=== PATIENT | female | born 1985 | race Caucasian/White ===

== ENCOUNTER → 2017-05-25 | Outpatient (CLI) | payer OTHER ==
[~2017-05-25] MED LIST: ACET-1311 PO; ADVIN25/60 INH; ALBU1AER9 INH; AMT50 PO; ERGO500037 PO; HYDR-5688 PO; METF1000 PO; NXM/40 PO; PLMINSR5 INH; SERT-234 PO
[2017-05-25 13:11] LABS: BASO % 0.2 %; BASO ABS # 0.02 K/uL (0-0.2); EOS % 1.5 %; HEMATOCRIT 38.5 % (37-47); IG% 0.1 %; LYMPH % 29.4 %; LYMPH ABS # 2.41 K/uL (1.2-3.4); MEAN CELL VOLUME 71.8 fL (80-100); MEAN CORPUSCULAR HEMOGLOBIN 22.2 pg (25-34); MEAN CORPUSCULAR HGB CONC 30.9 g/dl (32-36); MEAN PLATELET VOLUME 11.6 fL (7.4-10.4); MONO % 7.4 %; NEUT % 61.4 %; PLATELET COUNT 347 K/uL (130-400); RED BLOOD COUNT 5.36 M/uL (4.2-5.4); WHITE BLOOD COUNT 8.21 K/uL (4.8-10.8)
[2017-05-25 13:46] LABS: ALT/SGPT 30 U/L (12-78); BLOOD UREA NITROGEN 17 mg/dl (7-18); BUN/CREATININE RATIO 22.1 (10-20); CALCIUM 9.2 mg/dl (8.5-10.1); CARBON DIOXIDE 28 mmol/L (21-32); CHLORIDE 103 mmol/L (98-107); CHOLESTEROL 143 mg/dl (0-200); COMPLETE YES; CREATININE 0.79 mg/dl (0.60-1.20); GLUCOSE 93 mg/dl (70-99); HYPERSEGMENTED POLYS 1+; MAGNESIUM 2.2 mg/dl (1.8-2.4); MICROCYTOSIS PRESENT; POTASSIUM 3.5 mmol/L (3.5-5.1); SCHISTOCYTES 1+; SODIUM 139 mmol/L (136-145); TRIGLYCERIDES 90 mg/dl (0-150); VERY LOW DENSITY LIPOPROT CALC 18 mg/dl
[2017-05-25 13:48] LABS: ESTIMATED AVERAGE GLUCOSE 114 mg/dl; HA1C FLAG Normal (Normal)
[2017-05-25 13:55] LABS: ALKALINE PHOSPHATASE 74 U/L (45-117); AST/SGOT 19 U/L (15-37); CHOLESTEROL/HDL RATIO 2.9; HDL CHOLESTEROL 50 mg/dl; LDL CHOLESTEROL CALCULATED 75 mg/dl
--- NOTE | 2017-06-02 12:55 | CODING QUERY MEDICAL NECESSITY ---
SUPPORTING DIAGNOSIS NEEDED A supporting diagnosis is required for the test/procedure performed on this patient in order for us to be reimbursed by the patient's insurance. Please provide a supporting diagnosis for the following test/procedure listed below next to the test name along with your signature. *If there is no additional diagnosis for this patient that would support the following test/procedure please document that below next to the test/procedure. Test(s)/Procedure(s) that require a supporting diagnosis: * HEMOGLOBIN A1C DIAGNOSIS: Provider Signature: Date: Thank you Michelle Hayden [employer] Information Management Once completed, please kindly fax back to [phone] For questions please call [phone]
== END | disposition home or self-care (01) ==
LOC: C.LAB 12:12
PROVIDERS: ATTEND Nurse Practitioner Adult Health
DX: I10 Essential (primary) hypertension (principal); E66.01 Morbid (severe) obesity due to excess calories; K21.9 Gastro-esophageal reflux disease without esophagitis; E53.8 Deficiency of other specified B group vitamins; E55.9 Vitamin D deficiency, unspecified

== ENCOUNTER 2017-06-21 01:02 | Emergency (ER) | payer OTHER ==
[~2017-06-21] VITALS: Ht 170.2 cm; Wt 159.8 kg
[2017-06-21 01:13] VITALS: TEMP 36.8; Ht 170.2 cm; Wt 159.8 kg
--- NOTE | 2017-06-21 01:50 | EMERGENCY ROOM VISIT NOTE ---
History First contact with patient: 01:16 Chief Complaint: SINUS CONGESTION/PRESSURE Stated Complaint: SINUS CONGESTION,TROUBLE BREATHING,FEVER Nursing Triage Summary: pt ambulated to triage pt reports " I think I have pneumonia" started 1 wk ago with back pain and cough using a neb machine at home with not much relief History of Present Illness The patient is a 32 year old female who presents to the Emergency Room with complaints of respiratory symptoms. The patient states that she has had cold symptoms for 1 week. She initially had sneezing and nasal discharge. She states that the symptoms "moved into her chest" a few days ago. She called her primary care provider and they called her in a prescription for albuterol for her nebulizer. She has been using [id number] medications and inhalers with some relief. She states she has had diarrhea, chills, shortness of breath and a dry cough. She does have a history of asthma and states that she has had pneumonia in the past. She reports fevers, although temperature here was normal despite not taking any antipyretics. Review of Systems A complete 10 point review of systems was reviewed with the patient with pertinent positives and negatives as per history of present illness. All else were negative. Past Medical/Surgical History Medical Problems: (1) Kidney stones (2) Lumbar disc lesion (3) Pneumonia (4) Pneumonitis (5) Polycystic ovaries (6) Shortness of breath Family History No pertinent family history Social History Smoking Status: Never Smoker Alcohol Use: none Drug Use: none Marital Status: single Housing Status: lives with family Occupation Status: disabled Current/Historical Medications Scheduled Amitriptyline Hcl (Elavil), 50 MG PO HS Azithromycin (Zithromax), 250 MG PO DAILY Cyanocobalamin (Vitamin B12), Unknown Dose PO DAILY Ergocalciferol (Vitamin D 18011 Unit), 50,000 UNIT PO WK Esomeprazole Magnesium (Nexium), 40 MG PO QAM Ferrous Sulfate (Kp Ferrous Sulfate), 1 TAB PO DAILY Hydrochlorothiazide (Hctz), 25 MG PO DAILY Metformin Hcl (Glucophage), 1,000 MG PO HS Multivitamin (Multivitamin), 1 TAB PO DAILY Prednisone (Prednisone), 50 MG PO DAILY Sertraline (Zoloft), 150 MG PO HS Scheduled PRN Acetaminophen (Tylenol), 650 MG PO QID PRN for Pain Albuterol Sulfate (Proair Hfa), 1-2 PUFFS INH Q4-6HRS PRN for SOB/Wheezing Budesonide (Pulmicort Respules 0.5MG/2ML), 2 ML INH QID PRN for Shortness of Breath Fluticasone Prop/Salmeterol (Advair Diskus 250/50 60 Dose), 1 PUFFS INH BID PRN for SOB/Wheezing Physical Exam Vital Signs Date Time Temp Pulse Resp B/P (MAP) Pulse Ox O2 Delivery O2 Flow Rate FiO2 06/21/17 02:29 91 20 145/102 98 Room Air 06/21/17 01:13 36.8 97 18 169/114 100 Room Air Physical Exam VITALS: Vitals are noted on the nurse's note and reviewed by myself. Vital signs stable. GENERAL: This is a 32-year-old female, in no acute distress, nondiaphoretic, well-developed well-nourished. SKIN: The skin was without rashes. EARS: External auditory canals clear, tympanic membranes pearly crawford without erythema or effusion bilaterally. EYES: Pupils equal round and reactive to light and accommodation. NOSE: Patent, turbinates without inflammation or discharge. MOUTH: Mucous membranes moist. Tonsils are not enlarged. Pharynx without erythema or exudate. NECK: Supple without nuchal rigidity. No lymphadenopathy. HEART: Regular rate and rhythm without murmurs gallops or rubs. LUNGS: Clear to auscultation bilaterally without wheezes, rales or rhonchi. No retractions or accessory muscle use. NEURO: Patient was alert and oriented to person place and time. Medical Decision & Procedures ER Provider Diagnostic Interpretation: CHEST X-RAY: No obvious lobar consolidation. Possible developing right lower lobe infiltrate. Medications Administered Medications (Trade) Dose Ordered Sig/Hailey Route Start Time Stop Time Status Last Admin Dose Admin Azithromycin (Zithromax Tab) 500 mg NOW STAT PO 06/21/17 02:28 06/21/17 02:30 DC 06/21/17 02:33 500 MG Prednisone (PredniSONE TAB) 60 mg NOW STAT PO 06/21/17 02:28 06/21/17 02:30 DC 06/21/17 02:32 60 MG Medical Decision Differential diagnosis includes pneumonia, upper respiratory infection, asthma exacerbation, among others. The patient was evaluated as above. Vital signs are within normal limits. Oxygen saturation is near 100% on room air. X-ray was obtained and shows possible developing right lower lobe infiltrate. Patient will be placed on Zithromax and prednisone for her symptoms. She was advised to follow-up with her primary care provider for a recheck this week. She will return for any worsening or new/concerning symptoms. She verbalized understanding and was discharged home in good condition. Medication Reconcilliation Current Medication List: was personally reviewed by me Blood Pressure Screening Patient's blood pressure: Normal blood pressure Impression Primary Impression: Upper respiratory infection Departure Information Dispostion Home / Self-Care Condition GOOD Prescriptions Prednisone (Prednisone) 50 Mg Tab 50 MG PO DAILY for 4 Days, #4 TAB Prov: Katelyn Maloney .DIETER 06/21/17 Azithromycin (Zithromax) 250 Mg Tab 250 MG PO DAILY for 4 Days, #4 TAB Prov: Katelyn Maloney PA-C 06/21/17 Referrals Michele Crespo III, CRNP (PCP) Patient Instructions My [facility] Additional Instructions You were prescribed Zithromax to be taken as prescribed. This is an antibiotic. All antibiotics have the potential to cause diarrhea. Stop this medication and contact a medical provider if you were to develop any significant adverse side effects including: wheezing, shortness of breath, passing out, vomiting, or a diffuse rash. Always take antibiotics as directed and COMPLETE the ENTIRE course regardless of the improvement of your symptoms. Prednisone as prescribed. For pain control, you can use the following [id number]-[id number] medicines (if >12 yo): - Regular strength (325mg/tab) Tylenol (acetaminophen) 2 tabs every 4-6 hours as needed. Do not exceed 12 tablets in a 24 hour period. Avoid taking more than 4 grams (4000 mg) of Tylenol per day. This includes any other sources of acetaminophen you may take on a regular basis. - Regular strength (200 mg/tab) Advil (ibuprofen) 1-2 tabs every 4-6 hours as needed. Do not exceed a dose of 3200 mg per day. Continue your nebulizers and inhalers at home. Follow-up with your primary care provider this week. Return to the emergency department with any worsening or new/concerning symptoms.
[2017-06-21] MEDS ORDERED: HYDR25TA4 PO (02:19)
[2017-06-21] MEDS ORDERED: MULT-506 PO (02:22)
[2017-06-21] MEDS ORDERED: CYAN100020 PO (02:23)
[2017-06-21] MEDS ORDERED: FERR1TAB13 PO (02:25)
[2017-06-21] MEDS ORDERED: AZITHROMYCIN 250 MG TAB PO STA (02:28)
[2017-06-21 02:29] VITALS: BP 145/102; PULSE 91; O2SAT 98
[2017-06-21] MEDS ORDERED: AZIT250T PO (02:37)
[2017-06-21] MEDS ORDERED: PRED50TA PO (02:37)
--- NOTE | 2017-06-21 08:06 | DIAGNOSTIC IMAGING REPORT ---
CHEST 2 VIEWS ROUTINE HISTORY: cough, shortness of breath COMPARISON: Chest 07/01/2015. FINDINGS: The lungs are clear. Cardiac silhouette is normal in size. No pleural effusions. No pneumothorax. IMPRESSION: No acute process. Electronically signed by: Damien Mcfarlane M.D. 06/21/2017 8:05 AM Dictated Date/Time: 06/21/2017 8:04 AM
== END 2017-06-21 02:41 | disposition home or self-care (01) ==
LOC: C.EDB 01:03
DX: J06.9 Acute upper respiratory infection, unspecified (principal); J45.909 Unspecified asthma, uncomplicated; Z79.84 Long term (current) use of oral hypoglycemic drugs

== ENCOUNTER 2022-03-22 02:15 | Inpatient (IN) ==
--- NOTE | 2022-03-22 02:58 | History & Physical Report ---
Date of Service March 22, 2022 Assessment & Plan (1) with 36 completed weeks gestation: (2) Supervision of elderly primigravida: (3) Premature labor: Plan Patient now in active labor. Difficult ultrasound but appears breech and had been planning on proceeding with c/s anyway. consent reviewed and signed. Fetus overall reassuring despite difficult tracing. Will proceed urgently. History of Present Illness Chief Complaint: contractions, twins Primary Care Provider: Isa Tubbs MD Patient is a 37yowf iup di/di twin at 36 4/7 weeks who presents to labor and delivery complaining of contractions. Patient was in labor and delivery yesterday for decreased fm. rnst x 2. cx at that time was c l/l/h. Patient had been kendrick at that time. She notes contractions increased at about 7pm last night. Notes some slight spotting and continued loss of mucous plug. has been somewhat complicated. and Delivery Plans PT REQUESTS THAT FOB (VICK) BE REMOVED FROM HIPPA AND NOT ATTEND APPTS!! This has changed and he is present currently AMA *Weekly NST's @ 36wks Hx Gastric Bypass sees specialist, likely will be getting Fe injections seeing G boy's adviser BORA noted on us in the ED 08/27. *plan wkly visits for reassurance *not seen at anatomy scan covid vaccine x 2 had flu vaccine Di/Di Twin *Baby ASA daily start 12-28wks until delivery *Anatomy scan @20wks *Serial growth US/S starting @24wks *Wkly NST's @32wks, twice wkly @36wks(nml growth) *Twice wkly NST's @32wks, ICSI or abnml growth *MD visits Q2wks @24wks & Qwk @32wks *DI/DI Deliver @38wks C/S SCHEDULED FOR 04/04/[address] CASTRO AND DR[address] JENKINS ASSIST NEEDS COVID TEST ON 04/02/2022-ORDERED Allergies Allergy/AdvReac Type Severity Reaction Status Date / Time Pertussis Vaccines Allergy Severe SEE COMMENT Verified 03/18/22 11:26 erythromycin base Allergy Intermediate HIVES, Verified 03/18/22 11:26 N/V, HALLUCINATION Sulfa (Sulfonamide Allergy Intermediate HIVES, Verified 03/18/22 11:26 Antibiotics) N/V, HALLUCINATIONS sulfamethoxazole Allergy Intermediate hives, Verified 03/18/22 11:26 [From Bactrim] n/v, hallucinations trimethoprim [From Bactrim] Allergy Intermediate hives, Verified 03/18/22 11:26 n/v, hallucinations clindamycin AdvReac Intermediate yeast Verified 03/18/22 11:26 infections doxycycline AdvReac Intermediate YEAST Verified 03/18/22 11:26 INFECTION NSAIDS (Non-Steroidal AdvReac Unknown No NSAID's Verified 03/18/22 11:26 Anti-Inflamma due to hx of gastric bypass surgery Home Medications Medication Instructions Recorded Confirmed Type albuterol sulfate 90 mcg/actuation 1 puff inhalation Q4 PRN Shortness 02/13/21 03/18/22 Rx aerosol inhaler (ProAir HFA) Of Breath #25.5 grams lansoprazole 30 mg capsule,delayed 30 mg PO QAM 02/14/21 03/18/22 History release escitalopram oxalate 20 mg tablet 20 mg PO HS #90 tabs 04/10/21 03/18/22 Rx albuterol sulfate 2.5 mg/3 mL 2.5 mg (3 mL) inhalation Q4H PRN 05/31/21 03/18/22 Rx (0.083 %) solution for nebulization shortness of breath or wheezing #90 mL pediatric multivitamin no.76 1 tab PO DAILY 08/27/21 03/18/22 History (Flintstones Complete chewable tablet) cyanocobalamin (vitamin B-12) 1,000 mcg IM DIRECTED 12/27/21 03/18/22 History 1,000 mcg/mL injection solution Iron Infusion 1 ea IV DIRECTED 03/03/22 03/18/22 History cephalexin 500 mg capsule 500 mg PO BID 03/13/22 03/18/22 History terconazole 0.4 % vaginal cream 1 appful vaginal HS 7 days #45 03/14/22 03/18/22 Rx grams Patient History Medical History (Updated 03/22/22 @ 03:03 by Ladan Elizabeth MD, FACOG) Anemia to start IV iron infusions Anxiety Asthma Borderline diabetes Cervicalgia Chronic back pain Degenerative disc disease Depression Fibromyalgia GERD (gastroesophageal reflux disease) History of anesthesia reaction difficulty waking History of herpes genitalis History of lymphadenopathy History of nephrolithiasis History of urinary calculi right Hormonal contraceptive Hypertension Insomnia persistent Kidney stones Osteoarthritis Pelvic pain Post traumatic stress disorder Sleep apnea mild; does not use CPAP Spinal stenosis Vaginal candidiasis Vulvitis Surgical History H/O gastric bypass History of ankle surgery right History of lumbar laminectomy History of open reduction and internal fixation (ORIF) procedure right leg fx--hardware removed History of tooth extraction Hx of wisdom tooth extraction Family History Grandmother (Maternal) Family history of diabetes mellitus Ovarian cancer Aunt Family history of diabetes mellitus Unknown Diabetes Myocardial infarction Ovarian cancer Mother Fibromyalgia Family/Other Myocardial infarction Father , 68 Myocardial infarction Brother Hypertension Asthma Other No family history of adverse response to anesthesia Denies family history of Prostate cancer Breast cancer Colorectal cancer Social History Smoking Status: Current every day smoker Tobacco Type: Cigarettes Age Started Using Tobacco: 14; packs per day: 1; Cigarettes Per Day: 10; Second Hand Exposure: No; Hx Alcohol Use: No Hx Substance Use: No Preferred Language: Indonesian Communication Ability: Effective Visual Impairment: No Limitations Hearing Ability: Normal Beauty Specialist Required: No Beliefs That Will Affect Care: None marital status: marital status details: FOB: Vick (41) [phone] Current Living Situation: Spouse Current Living Situation Comment: lives with spouse, mother 2 dogs, 3 cats, spouse to change litter. current occupational status: employed and disabled current occupation: cafe @ [employer] Other Information That Helps Us Care for You: No Feels Safe at Home: Yes Safety Concerns: Feels Safe At This Time Childhood Exposure to Second-Hand Smoke: Yes Dental Care, Regularly: No Physical Activity Frequency: 3-4 Times per Week Seatbelt Use: never Sunscreen Use: Yes Assistive Devices: Glasses and Nebulizer Physical Exam Constitutional: WD/WN, vitals as above Gastrointestinal (Abdomen): soft, gravid, nt Psychiatric: A+Ox3, euthymic affect Genitourinary: difficult exam cx--at least 6-8cm likely , bulging bag palpated toco--q5min efm--difficult tracing, both babies are in 130s, cannot trace adequately Results & Data ([facility]) Vital Signs (Past 12 Hours) Vital Signs Temp Pulse Resp BP 03/22/22 02:34 36.8 C 18 03/22/22 02:33 75 133/76 Coding Level of Care Code None Diagnoses with 36 completed weeks gestation Z3A.36 Supervision of elderly primigravida O09.519 Premature labor O60.00
[2022-03-22] MEDS ORDERED: LACTATED RINGER'S 1,000 ML IV SCH ×2 (03:00→20:45)
[2022-03-22] MEDS ORDERED: ONDANSETRON INJ 2 MG/ML 2 ML VIAL ONE (03:09)
[2022-03-22] MEDS ORDERED: fentaNYL citrate 100 MCG/2 ML VIAL ONE (03:09)
[2022-03-22] MEDS ORDERED: PHENYLEPHRINE 100MCG/ML 5ML SYR ONE (03:09)
[2022-03-22] MEDS ORDERED: OXYTOCIN 10 UNITS/ML VIAL ONE (03:09)
[2022-03-22] MEDS ORDERED: MoRPHine SULFATE PF 1 MG/ML 10 ML AMP/VIAL ONE (03:09)
[2022-03-22] MEDS ORDERED: CITRIC ACID/SODIUM CITRATE 15 ML UDC PO ONE (03:15)
--- NOTE | 2022-03-22 03:15 | Anesthesiology Consultation ---
Date of Service March 22, 2022 Assessment & Plan (1) Encounter for pre-operative examination: Chart Review Chart Review: Acceptable Risk for Surgery and Patient NOT seen in Pre Admission Testing Consults Requested none History Height/Weight Height: 5 ft 7 in Weight: 111.13 kg Allergies Allergy/AdvReac Type Severity Reaction Status Date / Time Pertussis Vaccines Allergy Severe SEE COMMENT Verified 03/18/22 11:26 erythromycin base Allergy Intermediate HIVES, Verified 03/18/22 11:26 N/V, HALLUCINATION Sulfa (Sulfonamide Allergy Intermediate HIVES, Verified 03/18/22 11:26 Antibiotics) N/V, HALLUCINATIONS sulfamethoxazole Allergy Intermediate hives, Verified 03/18/22 11:26 [From Bactrim] n/v, hallucinations trimethoprim [From Bactrim] Allergy Intermediate hives, Verified 03/18/22 11:26 n/v, hallucinations clindamycin AdvReac Intermediate yeast Verified 03/18/22 11:26 infections doxycycline AdvReac Intermediate YEAST Verified 03/18/22 11:26 INFECTION NSAIDS (Non-Steroidal AdvReac Unknown No NSAID's Verified 03/18/22 11:26 Anti-Inflamma due to hx of gastric bypass surgery Medications Home Medications Medication Instructions Recorded Confirmed Last Taken albuterol sulfate 90 mcg/actuation 1 puff inhalation Q4 PRN Shortness 02/13/21 03/18/22 Unknown aerosol inhaler (ProAir HFA) Of Breath #25.5 grams lansoprazole 30 mg capsule,delayed 30 mg PO QAM 02/14/21 03/18/22 03/16/22 release escitalopram oxalate 20 mg tablet 20 mg PO HS #90 tabs 04/10/21 03/18/22 03/16/22 22:00 albuterol sulfate 2.5 mg/3 mL 2.5 mg (3 mL) inhalation Q4H PRN 05/31/21 03/18/22 Unknown (0.083 %) solution for nebulization shortness of breath or wheezing #90 mL pediatric multivitamin no.76 1 tab PO DAILY 08/27/21 03/18/22 03/16/22 (Flintstones Complete chewable tablet) cyanocobalamin (vitamin B-12) 1,000 mcg IM DIRECTED 12/27/21 03/18/22 03/14/22 09:00 1,000 mcg/mL injection solution Iron Infusion 1 ea IV DIRECTED 03/03/22 03/18/22 03/14/22 09:00 cephalexin 500 mg capsule 500 mg PO BID 03/13/22 03/18/22 03/17/22 13:00 terconazole 0.4 % vaginal cream 1 appful vaginal HS 7 days #45 03/14/22 03/18/22 03/16/22 22:00 grams Active Medications Generic Name Dose Route Start Last Admin Trade Name Leno PRN Reason Stop Dose Admin Lactated Ringer's 1,000 mls @ 999 mls/hr 03/22/22 03:00 03/22/22 03:00 Lr IV 03/22/22 04:00 999 mls/hr .Q1H1M BORA Administration Past Medical History Medical History Anemia to start IV iron infusions Anxiety Asthma Borderline diabetes Cervicalgia Chronic back pain Degenerative disc disease Depression Fibromyalgia GERD (gastroesophageal reflux disease) History of anesthesia reaction difficulty waking History of herpes genitalis History of lymphadenopathy History of nephrolithiasis History of urinary calculi right Hormonal contraceptive Hypertension Insomnia persistent Kidney stones Osteoarthritis Pelvic pain Post traumatic stress disorder Sleep apnea mild; does not use CPAP Spinal stenosis Vaginal candidiasis Vulvitis Exercise / Class Metabolic Activity II 4-5 Yardwork/Stairs/Walk up hill Past Family History Family History Grandmother (Maternal) Family history of diabetes mellitus Ovarian cancer Aunt Family history of diabetes mellitus Unknown Diabetes Myocardial infarction Ovarian cancer Mother Fibromyalgia Family/Other Myocardial infarction Father , 68 Myocardial infarction Brother Hypertension Asthma Other No family history of adverse response to anesthesia Denies family history of Prostate cancer Breast cancer Colorectal cancer Past Surgical History Surgical History H/O gastric bypass History of ankle surgery right History of lumbar laminectomy History of open reduction and internal fixation (ORIF) procedure right leg fx--hardware removed History of tooth extraction Hx of wisdom tooth extraction Past Anesthesia History No Hx of Anesthesia Complications and No Family Hx of Anesthesia Complications History of PONV No Hx of Motion Sickness and History of PONV Social History Smoking Status: Current every day smoker tobacco type: cigarettes Smoking cigarettes per day: 10 Hx Alcohol Use: No Hx Substance Use: No substance use type: does not use Physical Exam Vital Signs Last Vital Signs Temp 36.8 C 03/22/22 02:34 Pulse 75 03/22/22 02:33 Resp 18 03/22/22 02:34 BP 133/76 03/22/22 02:33 Testing Laboratory Results plt 03/13/22 293
[2022-03-22 03:27] LABS: Basophils # (auto) 0.03 K/uL (0-0.2); Basophils % (auto) 0.4 %; Eosinophils # (auto) 0.12 K/uL (0-0.50); Eosinophils % (auto) 1.5 %; Hematocrit (blood only) 33.6 % (34.1-44.9); Hemoglobin 10.5 g/dl (12.0-16.0); Immature Granulocytes # (auto) 0.04 K/uL (0.00-0.02); Immature Granulocytes % (auto) 0.5 %; Lymphocytes # (auto) 1.61 K/uL (1.2-3.4); Lymphocytes % (auto) 20.5 %; Mean Corpuscular Hemoglobin 25.9 pg (25.0-34.0); Mean Corpuscular Hgb Conc 31.3 g/dL (32.0-36.0); Mean Platelet Volume 11.6 fL (9.4-12.3); Monocytes % (auto) 7.6 %; Neutrophils # (auto) 5.47 K/uL (1.4-6.5); Neutrophils % (auto) 69.5 %; Nucleated RBC # (auto) 0.02 K/uL (0-0); Nucleated RBC % (auto) 0.3 %; Platelet Count 208 K/uL (130-400); RDW Standard Deviation 48.4 fL (36.4-46.3); Red Blood Count 4.05 M/uL (3.93-5.22); White Blood Count 7.87 K/ul (4.8-10.8)
[2022-03-22] MEDS ORDERED: miSOPROStoL 200 MCG TAB ONE (03:36)
[2022-03-22] MEDS ORDERED: METHYLERGONOVINE MALEATE 0.2 MG/ML AMP ONE (03:36)
[2022-03-22] MEDS ORDERED: SODIUM CHLORIDE 0.9% 250 ML IV PRN (03:58)
[2022-03-22] MEDS ORDERED: HYDROmorphone INJ 0.5 MG/0.5 ML SYR IV PRN (04:04)
[2022-03-22] MEDS ORDERED: LACTATED RINGER'S 500 ML IV PRN (04:04)
[2022-03-22] MEDS ORDERED: MoRPHine SULFATE PF 1 MG/ML 10 ML AMP/VIAL INT SPINAL ONE (04:04)
[2022-03-22] MEDS ORDERED: ONDANSETRON INJ 2 MG/ML 2 ML VIAL IV PRN ×2 (04:04→04:33)
[2022-03-22] MEDS ORDERED: MoRPHine SULFATE 2 MG/ML CARP IV PRN (04:04)
[2022-03-22] MEDS ORDERED: NALOXONE HCL 0.08 MG in SYRINGE 1.8 ML IV PRN (04:04)
[2022-03-22] MEDS ORDERED: NALOXONE HCL 0.4 MG/1 ML VIAL/CARP IV PRN (04:04)
[2022-03-22] MEDS ORDERED: ePHEDrine sulfate 50 MG/ML AMP IV PRN (04:04)
[2022-03-22] MEDS ORDERED: diphenhydrAMINE 50 MG/ML VIAL IV PRN ×2 (04:04→22:04)
[2022-03-22] MEDS ORDERED: NALBUPHINE HCL INJ 10 MG/ML AMP IV PRN (04:04)
[2022-03-22] MEDS ORDERED: NALOXONE HCL 1 MG in SODIUM CHLORIDE 0.9% 1000ML 1,000 ML IV PRN (04:04)
[2022-03-22] MEDS ORDERED: NO NARCOTICS OR SEDATIVES SCH (04:15)
[2022-03-22] MEDS ORDERED: DC INTRASPINAL MORPHINE SCH (04:15)
[2022-03-22] MEDS ORDERED: SODIUM CHLORIDE 0.9% 1000ML 1,000 ML IV SCH (04:15)
[2022-03-22] MEDS ORDERED: DIPHTHERIA/TETANUS/PERTUSSIS 0.5 ML SYR/VIAL IM ONE (04:33)
[2022-03-22] MEDS ORDERED: MAGNESIUM HYDROXIDE SUSP 30 ML UDC PO PRN (04:33)
[2022-03-22] MEDS ORDERED: HYDROCORTISONE ACETATE 25 MG SUPP PR PRN (04:33)
[2022-03-22] MEDS ORDERED: BENZOCAINE 20% AER SPR 82.5 GM CAN EXT PRN (04:33)
[2022-03-22] MEDS ORDERED: SENNA 8.6 MG TAB PO PRN (04:33)
[2022-03-22] MEDS ORDERED: KETOROLAC 30 MG/ML VIAL IV PRN ×3 (04:53→22:04)
--- NOTE | 2022-03-22 04:55 | Anesthesiology Progress Note ---
Date of Service March 22, 2022 Anesthesia Post Procedure Vital Signs Vital Signs: Temp Pulse Resp BP Pulse Ox 03/22/22 02:34 36.8 C 18 03/22/22 04:49 98 03/22/22 04:49 67 03/22/22 04:47 93 03/22/22 04:47 72 03/22/22 04:45 69 03/22/22 04:45 126/59 L 03/22/22 02:33 75 133/76 Transfer of Care Handoff Completed per policy Notes Mental Status: alert / awake / arousable and participated in evaluation Patient Amnestic to Procedure: No Nausea / Vomiting: adequately controlled Pain: adequately controlled Airway Patency, RR, SpO2: stable & adequate BP & HR: stable & adequate Hydration State: stable & adequate Neuraxial Anesthesia: was administered and sensory block is resolving Anesthetic Complications: no major complications apparent and Pt Satisfied with anesthetic care
--- NOTE | 2022-03-22 04:55 | Operative Report ---
PG Post Operative Report Pre & Post Diagnosis Operation Date: 03/22/22 03:30 Pre-Op Diagnosis: Di Di twin at 36 weeks 4 days premature labor breech baby A and breech baby B Post-Op Diagnosis: same as pre op diagnosis thin meconium baby B I identified the patient and participated in the time-out.: Yes Procedure Operation Date: 03/22/22 03:30 Actual Procedures p Primary low transverse Section in LD(Not Applicable) - Ladan Elizabeth MD, FACOG Surgeon Ladan Elizabeth MD, FACOG [employer] Floor Walker Dr. Granados Estimated Blood Loss 700 Findings Consistent with Post-Op Diagnosis viable female infant, baby A apgars 5/9, Baby A with very thin cord, minimal Brunswick's jelly, nuchal cord x 1, footling breech presentation baby B apgars 2/8, footling breech, short cord. normal uterus, tubes and ovaries noted. weights pending. Fluids 1500cc Specimens two placentas, fused Drains maciel Anesthesia Type General Complications none Disposition Accompanied Patient To Recovery: Yes Disposition: L&D Indications Patient is a 37yowf with di/di twin iup at 36 4/7 weeks who presents to labor and delivery with active carter, breech presentation Description of Procedure The patient was taken to the operating room where she was identified verbally and by bracelet. She was seated on the operating table where a spinal anesthetic was placed by anesthesia. She was then placed in the supine position with a leftward tilt. A Maciel catheter was placed sterilely. the patient was prepped and draped in a normal standard fashion. the anesthetic was tested and found to be adequate. A time-out was held, identifying correct patient, procedure, positioning and preoperative antibiotics. There were no concerns. A Pfannenstiel skin incision was made with a knife and taken down to the underlying layer of fascia with the knife and Bovie electrocautery. Bleeding was attended to with the Bovie. The fascia was incised in the midline with the knife and taken out laterally with scissors. The superior edge of the fascial incision was grasped, elevated and the underlying layer of rectus muscle was taken off bluntly and with scissors. In a similar fashion, the inferior edge of the fascial incision was grasped, elevated and the underlying layer of rectus muscle was taken off bluntly and with scissors. The muscles were bluntly in the midline. The peritoneum was entered bluntly. The incision was then stretched. The bladder blade was placed. The vesicouterine peritoneum was identified, entered with scissors and taken out laterally with scissors. The bladder flap was created digitally A hysterotomy incision was scored with a knife and the incision was stretched superiorly and inferiorly with the adjusto writer operator's fingers and then taken out laterally with bandage scissors. The amniotic sac for baby A was ruptured for thin meconium. The operators hand was placed into the incision and the feet were grasped. The feet were delivered and the body and head were delivered with gentle traction and fundal pressure. Nuchal cord x one reduced. The nose and mouth were bulb suctioned. The cord was clamped and cut and the infant was then handed off to the awaiting mechanical repair worker for drying and attention. Cord blood obtained. The amniotic sac for baby B was ruptured, clear fluid. The feet were grasped and delivered through the incision. The rest of the infant was then delivered by gentle tract ion and fundal pressure. The nose and mouth were bulb suctioned, cord clamped and cut and handed off to awaiting peds. Cord blood obtained. Cords too short to obtain a cord segment. The placentas were expressed. The uterus was exteriorized and cleared of all clot and debris with moistened laparotomy sponges. The hysterotomy incision was repaired in two layers, the first in a running locked layer, the second in an imbricating layer. Several stitches of 0 Vicryl needed for oozing of the incision. Some bleeding edges attended to with cautery. Hemostasis was noted to be good. There was a small hematoma in the area of the left uterine artery. A large figure of eight suture of 0 vicryl placed and no further increase in the size was noted. Posterior cul-de-sac was irrigated and cleared of all clot and debris. The hysterotomy incision was again inspected and found to be hemostatic. the uterus was reinteriorized. Hysterotomy incision was again inspected and two further stitches were required for hemostasis. Gudelia was placed over the incision and pressure was held for two minutes. Hemostasis noted to be good. Gutters were cleared of clot. Rectus muscles were reapproxim ated with several interrupted stitches of 0 Vicryl. The fascia was then reapproximated with 0 Vicryl starting at the edges and meeting in the midline. The subcuticular tissues were copiously irrigated and bleeding was attended to with cautery. The skin was then closed with 4-0 Vicryl in a subcuticular fashion. A IRMA drain was placed. All sponge, lap and needle counts were correct x 2. The patient was taken to the recovery room in stable condition. I attest to the content of the Intraoperative Record and any orders documented therein. Any exceptions are noted below. OB Procedure Charges [id number]
[2022-03-22] MEDS: OXYTOCIN 20 UNITS in LACTATED RINGER'S 1,000 ML IV SCH ×2 (05:03→14:14)
[2022-03-22] MEDS ORDERED: LIDOCAINE 1% LOCAL 20 ML VIAL ONE (07:13)
[2022-03-22] MEDS: PRENATAL VITAMIN 1 TAB PO SCH (09:53)
[2022-03-22] MEDS: PANTOprazole 40 MG TAB PO SCH (09:53)
[2022-03-22] MEDS: DOCUSATE SODIUM 100 MG CAP PO SCH ×2 (09:53→21:29)
[2022-03-22] MEDS: SIMETHICONE 80 MG CHEW PO SCH ×4 (09:53→21:29)
[2022-03-22] MEDS: FERROUS SULFATE 325 MG TAB PO SCH (09:53)
[2022-03-22] MEDS: ESCITALOPRAM OXALATE 20 MG TAB PO SCH (21:29)
[2022-03-22] MEDS ORDERED: diphenhydrAMINE Capsule 25 MG CAP PO PRN (22:04)
[2022-03-22] MEDS ORDERED: PROMETHAZINE HCL 25 MG in SODIUM CHLORIDE 0.9% 50 ML IV PRN (22:04)
[2022-03-22] MEDS ORDERED: MEPERIDINE HCL 50 MG/ML CARP IV PRN (22:04)
[2022-03-22] MEDS: oxyCODONE/ACETAMINOPHEN 5mg/325mg TAB PO PRN (23:10)
[2022-03-23] MEDS: oxyCODONE/ACETAMINOPHEN 5mg/325mg TAB PO PRN ×4 (04:45→20:59)
[2022-03-23 07:10] LABS: Basophils # (auto) 0.03 K/uL (0-0.2); Basophils % (auto) 0.4 %; Eosinophils # (auto) 0.22 K/uL (0-0.50); Eosinophils % (auto) 2.9 %; Hematocrit (blood only) 30.8 % (34.1-44.9); Hemoglobin 9.5 g/dl (12.0-16.0); Immature Granulocytes # (auto) 0.04 K/uL (0.00-0.02); Immature Granulocytes % (auto) 0.5 %; Lymphocytes # (auto) 1.47 K/uL (1.2-3.4); Lymphocytes % (auto) 19.6 %; Mean Corpuscular Hemoglobin 25.5 pg (25.0-34.0); Mean Corpuscular Hgb Conc 30.8 g/dL (32.0-36.0); Mean Corpuscular Volume 82.8 fL (80.0-100.0); Mean Platelet Volume 11.5 fL (9.4-12.3); Monocytes # (auto) 0.41 K/uL (0.24-0.82); Monocytes % (auto) 5.5 %; Neutrophils # (auto) 5.34 K/uL (1.4-6.5); Neutrophils % (auto) 71.1 %; Nucleated RBC # (auto) 0.02 K/uL (0-0); Nucleated RBC % (auto) 0.3 %; Platelet Count 176 K/uL (130-400); RDW Coefficient of Variation 17.1 % (11.5-14.5); RDW Standard Deviation 48.6 fL (36.4-46.3); Red Blood Count 3.72 M/uL (3.93-5.22); White Blood Count 7.51 K/ul (4.8-10.8)
--- NOTE | 2022-03-23 07:34 | Obstetrical Progress Note ---
Date of Service March 23, 2022 Assessment & Plan (1) Encounter for care and examination after delivery: encourage ambulation abdominal binder ordered which should reduce incisional discomfort while walking advance diet Subjective Ambulation: ambulating normally Voiding: no voiding problems Passing Gas:: No Diet Tolerance:: clear liquids Lochia:: Small Feeding Type:: bottle feeding moving slowly so far- feels alot of pulling from pannus when she is up and makes it difficult to move. tolerating clear liquids - no nausea or vomiting but no flatus yet Review of Systems All systems reviewed & are unremarkable except as noted in HPI & below Physical Exam Constitutional WD/WN, vitals as above Cardiovascular Extremities: no calf tenderness Gastrointestinal (Abdomen) normal bowel sounds, soft, nontender, no hepatosplenomegaly (expected tenderness from incision) Inspection/Auscultation: + abdominal surgical incision (IRMA dressing intact - no further growth of staining ) Psychiatric A+Ox3, euthymic affect Genitourinary OB Exam Abdomen: + fundal height Fundus: + firm and + relation to umbilicus (1 below) Results & Data ([facility]) Vital Signs (Past 12 Hours) Vital Signs Temp Pulse Resp BP Pulse Ox O2 Del Method 03/23/22 03:40 97.9 F 61 16 105/72 95 Room Air 03/22/22 22:45 18 93 03/22/22 23:00 98.1 F 70 16 118/79 94 Room Air 03/22/22 21:30 16 95 03/22/22 20:30 16 96 03/22/22 19:30 16 94 03/22/22 19:30 Room Air 03/22/22 19:30 98.2 F 73 16 112/71 94 Room Air
[2022-03-23] MEDS: FERROUS SULFATE 325 MG TAB PO SCH (08:03)
[2022-03-23] MEDS: SIMETHICONE 80 MG CHEW PO SCH ×4 (08:03→21:02)
[2022-03-23] MEDS: DOCUSATE SODIUM 100 MG CAP PO SCH ×2 (08:03→20:59)
[2022-03-23] MEDS: PANTOprazole 40 MG TAB PO SCH (08:03)
[2022-03-23] MEDS: PRENATAL VITAMIN 1 TAB PO SCH (08:03)
[2022-03-23] MEDS ORDERED: bisacodyL 5 MG TABEC PO SCH (20:00)
[2022-03-23] MEDS: ESCITALOPRAM OXALATE 20 MG TAB PO SCH (21:00)
[2022-03-24] MEDS: oxyCODONE/ACETAMINOPHEN 5mg/325mg TAB PO PRN ×4 (01:33→21:00)
[2022-03-24] MEDS ORDERED: bisacodyL 10 MG SUPP PR PRN (04:33)
[2022-03-24 06:30] LABS: Hematocrit (blood only) 29.6 % (34.1-44.9); Hemoglobin 9.3 g/dl (12.0-16.0)
--- NOTE | 2022-03-24 06:58 | Obstetrical Progress Note ---
Date of Service <Ileana Root MD - Last Filed: 03/24/22 07:34> March 24, 2022 Assessment & Plan <Ileana Root MD - Last Filed: 03/24/22 07:34> (1) Encounter for care and examination after delivery: encourage ambulation abdominal binder ordered which should reduce incisional discomfort while walking advance diet as tolerated, zofran PRN for nausea <Margarette Desai MD, FACOG - Last Filed: 03/24/22 09:25> (1) Encounter for care and examination after delivery: Subjective <Ileana Root MD - Last Filed: 03/24/22 07:34> Ambulation: limited ambulation Voiding: no voiding problems Passing Gas:: Yes Diet Tolerance:: nausea/vomiting (nauseous with eating, no vomiting) Lochia:: Small Feeding Type:: bottle feeding Physical Exam <Ileana Root MD - Last Filed: 03/24/22 07:34> Constitutional WD/WN, vitals as above Cardiovascular Extremities: no calf tenderness Gastrointestinal (Abdomen) normal bowel sounds, soft, nontender, no hepatosplenomegaly (expected tenderness from incision) Inspection/Auscultation: + abdominal surgical incision (IRMA dressing intact - no further growth of staining ) Psychiatric A+Ox3, euthymic affect Results & Data ([facility]) <Ileana Root MD - Last Filed: 03/24/22 07:34> Vital Signs (Past 12 Hours) Vital Signs Temp Pulse Resp BP O2 Del Method 03/23/22 23:29 36.8 C 62 16 117/80 Room Air 03/23/22 20:00 36.6 C 63 16 133/86 Room Air <Margarette Desai MD, FACOG - Last Filed: 03/24/22 09:25> Co-Signing Physician Notes Resident Physician Supervision Note: I interviewed and examined the patient. Discussed with Dr. Root and agree with findings and plan as documented in the note. Any exceptions or clarifications are listed here: [None] Documented By: Margarette Desai MD, FACOG Resident Activity Tracking <Ileana Root MD - Last Filed: 08/29/22 07:34> Resident Involvement: Resident Care Provided Care Provided: Adult [facility] Medicine
[2022-03-24] MEDS: DOCUSATE SODIUM 100 MG CAP PO SCH ×2 (08:33→21:00)
[2022-03-24] MEDS: ONDANSETRON 4 MG OD TAB PO PRN ×2 (08:33→15:32)
[2022-03-24] MEDS: FERROUS SULFATE 325 MG TAB PO SCH (08:33)
[2022-03-24] MEDS: PRENATAL VITAMIN 1 TAB PO SCH (08:33)
[2022-03-24] MEDS: PANTOprazole 40 MG TAB PO SCH (08:33)
[2022-03-24] MEDS: SIMETHICONE 80 MG CHEW PO SCH ×4 (08:33→21:00)
[2022-03-24] MEDS: ESCITALOPRAM OXALATE 20 MG TAB PO SCH (21:00)
[2022-03-25] MEDS: oxyCODONE/ACETAMINOPHEN 5mg/325mg TAB PO PRN ×2 (03:07→08:57)
--- NOTE | 2022-03-25 06:46 | Obstetrical Progress Note ---
Date of Service <Ileana Root MD - Last Filed: 03/25/22 07:42> March 25, 2022 Assessment & Plan <Ileana Root MD - Last Filed: 03/25/22 07:42> (1) Encounter for care and examination after delivery: PPD3 encourage ambulation abdominal binder ordered which should reduce incisional discomfort while walking advance diet as tolerated, zofran PRN for nausea cleared from an OB standpoint, awaiting peds - can d/c today if babies are going home or wait for tomorrow f/u 6 weeks <Chaya Deleon MD, FACOG - Last Filed: 03/25/22 07:45> (1) Encounter for care and examination after delivery: Subjective <Ileana Root MD - Last Filed: 03/25/22 07:42> Ambulation: ambulating normally Voiding: no voiding problems Passing Gas:: No (Can feel things moving around) Feeding Type:: bottle feeding Physical Exam <Ileana Root MD - Last Filed: 03/25/22 07:42> Constitutional WD/WN, vitals as above Respiratory no increased work of breathing Cardiovascular Extremities: no calf tenderness clinically well perfused Gastrointestinal (Abdomen) Inspection/Auscultation: + abdominal surgical incision (IRMA dressing intact - no further growth of staining ) Psychiatric A+Ox3, euthymic affect Results & Data ([facility]) <Ileana Root MD - Last Filed: 03/25/22 07:42> Vital Signs (Past 12 Hours) Vital Signs Temp Pulse Resp BP O2 Del Method 03/24/22 23:52 37.0 C 62 16 131/82 Room Air 03/24/22 20:00 36.9 C 60 16 133/86 Room Air <Chaya Deleon MD, FACOG - Last Filed: 03/25/22 07:45> Co-Signing Physician Notes Resident Physician Supervision Note: I was present with [Name of resident] during the history and exam. I discussed the case with the resident and agree with the findings and plan as documented in the note. Any exceptions or clarifications are listed here: [None] Documented By: Chaya Deleon MD, FACOG Resident Activity Tracking <Ileana Root MD - Last Filed: 03/25/22 07:42> Resident Involvement: Resident Care Provided Care Provided: Adult Hospital Medicine
[2022-03-25] MEDS: SIMETHICONE 80 MG CHEW PO SCH ×2 (08:49→13:19)
[2022-03-25] MEDS: FERROUS SULFATE 325 MG TAB PO SCH (08:50)
[2022-03-25] MEDS: PRENATAL VITAMIN 1 TAB PO SCH (08:50)
[2022-03-25] MEDS: DOCUSATE SODIUM 100 MG CAP PO SCH (08:50)
[2022-03-25] MEDS: PANTOprazole 40 MG TAB PO SCH (08:59)
[2022-03-25] MEDS: ONDANSETRON 4 MG OD TAB PO PRN (11:48)
--- NOTE | 2022-03-27 13:57 | Discharge Summary ---
Date of Service March 27, 2022 Admission HPI Per Admitting Provider Patient is a 37yowf iup di/di twin at 36 4/7 weeks who presents to labor and delivery complaining of contractions. Patient was in labor and delivery yesterday for decreased fm. rnst x 2. cx at that time was cl/l/h. Patient had been kendrick at that time. She notes contractions increased at about 7pm last night. Notes some slight spotting and continued loss of mucous plug. has been somewhat complicated. and Delivery Plans PT REQUESTS THAT FOB (ADONIS) BE REMOVED FROM HIPPA AND NOT ATTEND APPTS!! This has changed and he is present currently AMA *Weekly NST's @ 36wks Hx Gastric Bypass sees specialist, likely will be getting Fe injections seeing [facility] tie mill operator BORA noted on us in the ED 08/27. *plan wkly visits for reassurance *not seen at anatomy scan covid vaccine x 2 had flu vaccine Di/Di Twin *Baby ASA daily start 12-28wks until delivery *Anatomy scan @20wks *Serial growth US/S starting @24wks *Wkly NST's @32wks, twice wkly @36wks(nml growth) *Twice wkly NST's @32wks, ICSI or abnml growth *MD visits Q2wks @24wks & Qwk @32wks *DI/DI Deliver @38wks C/S SCHEDULED FOR 04/04/[address] CASTRO AND DR[address] JENKINS ASSIST NEEDS COVID TEST ON 04/02/2022-ORDERED Discharge Data Consultations 03/22/22 02:51 Consult Anesthesiology Stat Procedures Performed Operation Date: 03/22/22 03:30 Actual Procedures p Section in LD(Not Applicable) - [facility] Elizabeth [facility] (1) Encounter for care and examination after delivery: (2) Premature labor: (3) with 36 completed weeks gestation: (4) Dichorionic diamniotic twin gestation: Plan The patient was admitted and under went a primary low transverse . This was uncomplicated. Please see delivery note. Her course was uncomplicated--tolerated a regular diet, ambulated without difficulty, had pain controlled with oral pain meds, voided after removal of her maciel. She was ordered an abdominal binder which helped with her incisional pain. Her d/c h/h was 9.3/29.6. Was sent home with a IRMA drain which will be removed in one week. Coding Level of Care Code None Diagnoses Encounter for care and examination after delivery Z39.2 Premature labor O60.00 with 36 completed weeks gestation Z3A.36 Dichorionic diamniotic twin gestation O30.049
== END 2022-03-25 13:40 | disposition home or self-care (01) | DRG 786 ==
LOC: OPB 02:15 → 4S1 02:20 → 4E1 19:39

== ENCOUNTER 2023-03-20 18:39 | Observation (INO) ==
[2023-03-20] MEDS ORDERED: LACTATED RINGER'S 1,000 ML IV ONE (19:42)
--- NOTE | 2023-03-20 21:03 | History & Physical Report ---
Date of Service March 20, 2023 Assessment & Plan (1) Morbid obesity: Plan: Patient was initially evaluated by nursing and was thought to be perhaps fingertip I cannot place a finger through the cervix when I check her rate now which is several hours later cervix has excellent thickness there is minimal effacement. The patient is having periodic contractions and is uncomfortable I do not think she is an active labor and she is less than 39 weeks because she is less than 39 weeks I cannot electively do her section yet as she is not making any change previously she was able to progress to 6 cm with a twin and she clearly should not be actively laboring with a that occurred within the last year. With that being said I think she is not an active labor now I did offer her pain medication and nausea medication we will observe her for longer to ensure that this is not actually labor at this stage there has been no cervical change and in fact I cannot even palpate a finger through the cervix Due to her discomfort and the fact that she has had a prior she will be kept for observation overnight pain medication is offered and hydration History of Present Illness Primary Care Provider: Isa Tubbs MD Visit CESIA Calculator Estimated Delivery Date Method Current WG Current Estimate 04/01/23 Ultrasound #1 38w 0d Other Estimates 04/08/23 LMP (Uncertain) 37w 0d LMP: 07/02/22 : 3 Full term: 0 Premature: 1 Total Number of Induced Abortions: 0 Total Number of Spontaneous Abortions: 1 Ectopics: 0 Multiple births: 1 Number of Living Children: 2 and Delivery Plans AMA Weekly NST's @ 36 weeks Obesity (BMI between 35-39 @ beginning of ) *Growth US @ 32 wks *Weekly NSTs @ 36wks Baby asa (obesity, ama) Previous --03/22/22 for twins short interval recommend repeat c/s. Desires BTL C/S WITH TUBAL SCHEDULED FOR 03/27/[address] ZAPIEN AND DR[address] JOYA ASSIST declines narcotics and cannot take nsaids per surgeon. Current every day smoker HSV-last outbreak 2011 Allergies Allergy/AdvReac Type Severity Reaction Status Date / Time Pertussis Vaccines Allergy Severe SEE COMMENT Verified 03/20/23 10:56 erythromycin base Allergy Intermediate HIVES, Verified 03/20/23 10:56 N/V, HALLUCINATION Sulfa (Sulfonamide Allergy Intermediate HIVES, Verified 03/20/23 10:56 Antibiotics) N/V, HALLUCINATIONS sulfamethoxazole Allergy Intermediate hives, Verified 03/20/23 10:56 [From Bactrim] n/v, hallucinations trimethoprim [From Bactrim] Allergy Intermediate hives, Verified 03/20/23 10:56 n/v, hallucinations clindamycin AdvReac Intermediate yeast Verified 03/20/23 10:56 infections doxycycline AdvReac Intermediate YEAST Verified 03/20/23 10:56 INFECTION NSAIDS (Non-Steroidal AdvReac Unknown No NSAID's Verified 03/20/23 10:56 Anti-Inflamma due to hx of gastric bypass surgery Home Medications Medication Instructions Recorded Confirmed Type lansoprazole 30 mg capsule,delayed 30 mg PO QAM 02/14/21 03/20/23 History release albuterol sulfate 2.5 mg/3 mL 2.5 mg (3 mL) inhalation Q4H PRN 05/31/21 03/20/23 Rx (0.083 %) solution for nebulization shortness of breath or wheezing #90 mL ondansetron HCl 4 mg tablet 4 mg PO Q6H PRN nausea and 09/16/22 03/20/23 Rx vomiting #20 tabs safety needles 23 gauge x 1" (BD #50 ea 10/24/22 03/20/23 Rx SafetyGlide Needle) calcium carbonate 500 mg calcium 1,000 mg PO DAILY 01/09/23 03/20/23 History (1,250 mg) chewable tablet (Calcium 500) prenat.vits,darrel,vfs-dnyi-kyrvm 2 tab PO DAILY 01/09/23 03/20/23 History breast pump #1 ea 02/10/23 03/20/23 Rx valacyclovir 500 mg tablet 500 mg PO BID #60 tabs 02/24/23 03/20/23 Rx (Valtrex) albuterol sulfate 90 mcg/actuation 1 puff inhalation Q4H PRN 03/20/23 03/20/23 History aerosol inhaler (ProAir HFA) Shortness Of Breath cholecalciferol (vitamin D3) 1,250 1,250 mcg PO Q7D 03/20/23 03/20/23 History mcg (50,000 unit) capsule cyanocobalamin (vitamin B-12) 1,000 mcg IM Q14D 03/20/23 03/20/23 History 1,000 mcg/mL injection solution escitalopram oxalate 20 mg tablet 20 mg PO HS 03/20/23 03/20/23 History vitamin K2 1 cap PO DAILY 03/20/23 03/20/23 History Patient History Medical History (Updated 03/20/23 @ 14:29 by Yamini Shea PA-C) Anemia Iron deficiency and Vit B12 deficiency 2/2 gastric bypass. follows [facility]. Had IV Iron infusion 03/19/23 and 03/12/23 Anxiety Asthma nebulilzer and inh prn Chronic back pain Degenerative disc disease Depression Family history of allergies pt recently learned that her twin daughters have an allergy to latex-causing redness to the skin with contact (balloons); pt asked to make providers aware as she is concerned for the baby that is about this born possibly having the allergy also. Fibromyalgia GERD (gastroesophageal reflux disease) History of anesthesia reaction difficulty waking History of herpes genitalis History of lymphadenopathy History of nephrolithiasis passed on own History of urinary calculi right Hypertension no recent mention by PCP; no elevated BP readings per OB Insomnia persistent Morbid obesity pt taking ASA 81 mg daily 2/2 AMA and obesity Osteoarthritis Post traumatic stress disorder with 13 completed weeks gestation Sleep apnea mild; does not use CPAP Spinal stenosis Supervision of elderly primigravida pt taking ASA 81 mg daily 2/2 AMA and obesity Tobacco use current every day smoker Varicella vaccination Surgical History (Updated 03/20/23 @ 14:17 by Yamini Shea PA-C) H/O gastric bypass 2019 History of esophagogastroduodenoscopy (EGD) History of lumbar laminectomy History of open reduction and internal fixation (ORIF) procedure right leg fx--hardware removed History of tooth extraction Hx of wisdom tooth extraction S/P section 03/22/22 (twin ): SAB L4-L5 x 1 attempt Family History Grandmother (Maternal) Family history of diabetes mellitus Ovarian cancer Aunt Family history of diabetes mellitus Unknown Diabetes Myocardial infarction Ovarian cancer Mother Fibromyalgia Family/Other Myocardial infarction Father , 68 Myocardial infarction Brother Hypertension Asthma Other No family history of adverse response to anesthesia Denies family history of Prostate cancer Breast cancer Colorectal cancer Social History Smoking Status: Current every day smoker Tobacco Type: Cigarettes Age Started Using Tobacco: 14; packs per day: 1; Cigarettes Per Day: 10 or less; Second Hand Exposure: Yes; Do You Dip or Chew Tobacco: No; Hx Alcohol Use: No Hx Substance Use: No Preferred Language: Burkin[place] Communication Ability: Effective Visual Impairment: No Limitations Hearing Ability: Normal Hardwood Sawyer Required: No Beliefs That Will Affect Care: None marital status: marital status details: Vick Graham (42) [phone] Current Living Situation: Spouse, Parent and Family Current Living Situation Comment: lives with spouse, 2 children, 3 cats- spouse to change litter. current occupational status: unemployed and disabled current occupation: homemaker Other Information That Helps Us Care for You: No Feels Safe at Home: Yes Safety Concerns: Feels Safe At This Time Childhood Exposure to Second-Hand Smoke: Yes Diet: regular Dental Care, Regularly: No Physical Activity Frequency: 3-4 Times per Week Seatbelt Use: never Sunscreen Use: Yes Assistive Devices: None Review of Systems as per Subjective / HPI Physical Exam Constitutional: WD/WN, vitals as above well developed and well nourished Respiratory: normal respiratory effort, lungs clear to auscultation normal respiratory effort Cardiovascular: RRR, no murmur, no edema Gastrointestinal (Abdomen): normal bowel sounds, soft, nontender, no hepatosplenomegaly Results & Data Vital Signs (Past 12 Hours) Vital Signs Temp Pulse Resp BP 03/20/23 18:43 82 116/60 03/20/23 18:56 98.2 F 82 18 116/60 Coding Level of Care Code 91461 OP VST EST HI 40-54 MIN Diagnoses Morbid obesity E66.01 Time Spent (min) 50
[2023-03-20] MEDS: ONDANSETRON INJ 2 MG/ML 2 ML VIAL IV PRN (21:28)
[2023-03-20] MEDS: BUTORPHANOL TARTRATE 1 MG/ML VIAL IV PRN (21:28)
[2023-03-20] MEDS: LACTATED RINGER'S 1,000 ML IV SCH (21:35)
[2023-03-21] MEDS: ONDANSETRON INJ 2 MG/ML 2 ML VIAL IV PRN (04:39)
[2023-03-21] MEDS: BUTORPHANOL TARTRATE 1 MG/ML VIAL IV PRN (04:46)
[2023-03-21] MEDS: LACTATED RINGER'S 1,000 ML IV SCH (05:59)
--- NOTE | 2023-03-21 06:44 | Obstetrical Progress Note ---
Date of Service March 21, 2023 Assessment & Plan (1) Elderly multigravida: Plan Patient was observed overnight given several doses of Stadol and actually has slept most of the evening heart rate is category 1 there is minimal contraction activity noticed on the monitor I have reassessed her cervix it is still the same thick and 1 cm externally with no ability to pass through the internal os. I do not think she is in labor at this stage and she is before 39 weeks so I sa id at this stage we we will let her home go home and if her symptoms worsen she will call us back Results & Data Vital Signs (Past 12 Hours) Vital Signs Temp Pulse Resp BP 03/21/23 04:28 97.9 F 63 18 105/56 L 03/21/23 00:30 97.9 F 66 18 102/55 L 03/20/23 18:56 98.2 F 82 18 116/60 PG Care Time/CCT Total # of Minutes Spent Total Time Spent with Patient: Total time spent is greater than 50% in coordination of care (as documented) at patient's floor/unit and/or counseling patient: Coding Level of Care Code 01808 SUB INP/OBS CARE 08/20MIN Diagnoses Elderly multigravida O09.529
--- NOTE | 2023-03-25 09:52 | Discharge Summary ---
Date of Service March 25, 2023 Admission HPI Per Admitting Provider Visit CESIA Calculator Estimated Delivery Date Method Current WG Current Estimate 04/01/23 Ultrasound #1 38w 0d Other Estimates 04/08/23 LMP (Uncertain) 37w 0d LMP: 07/02/22 : 3 Full term: 0 Premature: 1 Total Number of Induced Abortions: 0 Total Number of Spontaneous Abortions: 1 Ectopics: 0 Multiple births: 1 Number of Living Children: 2 and Delivery Plans AMA Weekly NST's @ 36 weeks Obesity (BMI between 35-39 @ beginning of ) *Growth US @ 32 wks *Weekly NSTs @ 36wks Baby asa (obesity, ama) Previous --03/22/22 for twins short interval recommend repeat c/s. Desires BTL C/S WITH TUBAL SCHEDULED FOR 03/27/[address] ZAPIEN AND DR[address] JOYA ASSIST declines narcotics and cannot take nsaids per surgeon. Current every day smoker HSV-last outbreak 2011 Admission Exam (Per Admitting) Constitutional WD/WN, vitals as above well developed and well nourished Respiratory normal respiratory effort, lungs clear to auscultation normal respiratory effort Cardiovascular RRR, no murmur, no edema Gastrointestinal (Abdomen) normal bowel sounds, soft, nontender, no hepatosplenomegaly Hospital Course (1) Elderly multigravida: Plan Patient was observed overnight given several doses of Stadol and actually has slept most of the evening heart rate is category 1 there is minimal contraction activity noticed on the monitor I have reassessed her cervix it is still the same thick and 1 cm externally with no ability to pass through the internal os. I do not think she is in labor at this stage and she is before 39 weeks so I said at this stage we we will let her home go home and if her symptoms worsen she will call us back Coding Level of Care Code None Diagnoses Elderly multigravida O09.529
== END 2023-03-21 07:12 | disposition home or self-care (01) ==
LOC: 4S1 18:39 → OPB 18:39 → 4S1 18:41

== ENCOUNTER 2023-03-27 05:32 | Inpatient (IN) ==
--- NOTE | 2023-03-20 13:55 | Anesthesiology Consultation ---
Date of Service March 20, 2023 Assessment & Plan (1) Encounter for pre-operative examination: Chart Review Chart Review: entry driver operator initiated *Pt had a C/S (emergent 2/2 premature labor and breech twin ) 03/22/22 SAB without issue History Surgery Operation Date: 03/27/23 07:30 Proposed Procedures p Section (Delivery of Baby Through Abdominal Incision) - Ladan Elizabeth MD, FACOG s with Bilateral Tubal Ligation - Ladan Elizabeth MD, FACOG Height/Weight Height: 5 ft 7 in Weight: 121.563 kg Allergies Allergy/AdvReac Type Severity Reaction Status Date / Time Pertussis Vaccines Allergy Severe SEE COMMENT Verified 03/20/23 10:56 erythromycin base Allergy Intermediate HIVES, Verified 03/20/23 10:56 N/V, HALLUCINATION Sulfa (Sulfonamide Allergy Intermediate HIVES, Verified 03/20/23 10:56 Antibiotics) N/V, HALLUCINATIONS sulfamethoxazole Allergy Intermediate hives, Verified 03/20/23 10:56 [From Bactrim] n/v, hallucinations trimethoprim [From Bactrim] Allergy Intermediate hives, Verified 03/20/23 10:56 n/v, hallucinations clindamycin AdvReac Intermediate yeast Verified 03/20/23 10:56 infections doxycycline AdvReac Intermediate YEAST Verified 03/20/23 10:56 INFECTION NSAIDS (Non-Steroidal AdvReac Unknown No NSAID's Verified 03/20/23 10:56 Anti-Inflamma due to hx of gastric bypass surgery Medications Home Medications Medication Instructions Recorded Confirmed Last Taken lansoprazole 30 mg capsule,delayed 30 mg PO QAM 02/14/21 03/20/23 03/16/22 release albuterol sulfate 2.5 mg/3 mL 2.5 mg (3 mL) inhalation Q4H PRN 05/31/21 03/20/23 Unknown (0.083 %) solution for nebulization shortness of breath or wheezing #90 mL ondansetron HCl 4 mg tablet 4 mg PO Q6H PRN nausea and 09/16/22 03/20/23 Unknown vomiting #20 tabs safety needles 23 gauge x 1" (BD #50 ea 10/24/22 03/20/23 Unknown SafetyGlide Needle) calcium carbonate 500 mg calcium 1,000 mg PO DAILY 01/09/23 03/20/23 Unknown (1,250 mg) chewable tablet (Calcium 500) prenat.vits,darrel,[id number] 2 tab PO DAILY 01/09/23 03/20/23 Unknown breast pump #1 ea 02/10/23 03/20/23 Unknown valacyclovir 500 mg tablet 500 mg PO BID #60 tabs 02/24/23 03/20/23 Unknown (Valtrex) albuterol sulfate 90 mcg/actuation 1 puff inhalation Q4H PRN 03/20/23 03/20/23 Unknown aerosol inhaler (ProAir HFA) Shortness Of Breath cholecalciferol (vitamin D3) 1,250 1,250 mcg PO Q7D 03/20/23 03/20/23 Unknown mcg (50,000 unit) capsule cyanocobalamin (vitamin B-12) 1,000 mcg IM Q14D 03/20/23 03/20/23 Unknown 1,000 mcg/mL injection solution escitalopram oxalate 20 mg tablet 20 mg PO HS 03/20/23 03/20/23 Unknown vitamin K2 1 cap PO DAILY 03/20/23 03/20/23 Unknown Past Medical History Medical History (Updated 03/20/23 @ 14:29 by Yamini Shea PA-C) Anemia Iron deficiency and Vit B12 deficiency 2/2 gastric bypass. follows with [facility] heme/onc. Had IV Iron infusion 03/19/23 and 03/12/23 Anxiety Asthma nebulilzer and inh prn Chronic back pain Degenerative disc disease Depression Family history of allergies pt recently learned that her twin daughters have an allergy to latex-causing redness to the skin with contact (balloons); pt asked to make providers aware as she is concerned for the baby that is about this born possibly having the allergy also. Fibromyalgia GERD (gastroesophageal reflux disease) History of anesthesia reaction difficulty waking History of herpes genitalis History of lymphadenopathy History of nephrolithiasis passed on own History of urinary calculi right Hypertension no recent mention by PCP; no elevated BP readings per OB Insomnia persistent Morbid obesity pt taking ASA 81 mg daily 2/2 AMA and obesity Osteoarthritis Post traumatic stress disorder with 13 completed weeks gestation Sleep apnea mild; does not use CPAP Spinal stenosis Supervision of elderly primigravida pt taking ASA 81 mg daily 2/2 AMA and obesity Tobacco use current every day smoker Varicella vaccination Past Family History Family History Grandmother (Maternal) Family history of diabetes mellitus Ovarian cancer Aunt Family history of diabetes mellitus Unknown Diabetes Myocardial infarction Ovarian cancer Mother Fibromyalgia Family/Other Myocardial infarction Father , 68 Myocardial infarction Brother Hypertension Asthma Other No family history of adverse response to anesthesia Denies family history of Prostate cancer Breast cancer Colorectal cancer Past Surgical History Surgical History (Updated 03/20/23 @ 14:17 by Yamini Shea PA-C) H/O gastric bypass 2019 History of esophagogastroduodenoscopy (EGD) History of lumbar laminectomy History of open reduction and internal fixation (ORIF) procedure right leg fx--hardware removed History of tooth extraction Hx of wisdom tooth extraction S/P section 03/22/22 (twin ): SAB L4-L5 x 1 attempt Social History Smoking Status: Current every day smoker tobacco type: cigarettes Smoking cigarettes per day: 10 or less Do You Dip or Chew Tobacco: No Hx Alcohol Use: No Hx Substance Use: No substance use type: does not use Lab Results Anesthesia Preop Results Results Anesthesia Widget: Hgb 12.0 g/dl (12.0-16.0) 01/24/23 Hct 34.7 % (37.0-47.0) L 01/24/23 POC Glucose 82 mg/dl (70-99) 01/24/23 Testing Laboratory Results 03/04/23: WBC: 10.28 H/H: 12.3/36.5 PLATELETS: 209
--- NOTE | 2023-03-26 08:52 | History & Physical Report ---
Date of Service March 26, 2023 Assessment & Plan (1) Morbid obesity: (2) Elderly multigravida: (3) Previous delivery affecting , antepartum: Plan Plan repeat c/s and bilateral salpingectomy. The risks of surgery were discussed with the patient including the risks of anesthesia, bleeding requiring transfusion, infection, poor wound healing, urinary retention, damage to surrounding structures including bowels, bladder, vessels, nerves and ureters that may require further surgery, hospitalization or intervention. The other risks of any surgery were discussed including heart attack, blood clots, stroke or . Discussed risk of injury. Discussed tubal and other nonpermanent options. Declines. Disucussed regret. Consent reviewed and sigend. questions asked and answered. History of Present Illness Chief Complaint: repeat c/s and tubal Primary Care Provider: Isa Tubbs MD Patient is a 38yowf GP who presents for repeat c/s and tubal. Last was a c/s for twins at 36 weeks. Short interval. Delivered 03/22/22. has essentially been uncomplicated. Desires sterilization. Declines other options, including larc. and Delivery Plans AMA Weekly NST's @ 36 weeks Obesity (BMI between 35-39 @ beginning of ) *Growth US @ 32 wks--AC 46%, efw 34% *Weekly NSTs @ 36wks Baby asa (obesity, ama) Previous --03/22/22 for twins short interval recommend repeat c/s. Desires BTL C/S WITH TUBAL SCHEDULED FOR 03/27/[address] ZAPIEN AND DR[address] JONES ASSIST declines narcotics and cannot take nsaids per surgeon. Current every day smoker HSV-last outbreak 2011 Will need diet testing for GDM OB Labs: Blood Type O Positive 09/03/22 Antibody Screen NEGATIVE 09/03/22 Hemoglobin 12.0 g/dl (12.0-16.0) 01/24/23 Hematocrit 34.7 % (37.0-47.0) L 01/24/23 Mean Corpuscular Volume 81.7 fL (80.0-100.0) 09/30/22 Platelet Count 241 K/uL (130-400) 09/30/22 Rubella IgG Antibody Immune (Immune) 09/03/22 Rapid Plasma Reagin Nonreactive (Nonreactive) 09/03/22 Hepatitis B Surface Antigen Neg (Neg) 08/30/21 Hepatitis B Surface Antigen. NON-REACTIVE (NON-REACTIVE) 09/03/22 Hepatitis C Antibody Neg (Neg) 08/30/21 Hepatitis C Antibody (EIA) NON-REACTIVE (NON-REACTIVE) 09/03/22 HIV (1&2) Ab and P24 Ag, 4th Gener Neg (Neg) 08/30/21 HIV (1&2) Ag and Ab Confirmation NON-REACTIVE (NON-REACTIVE) 09/03/22 OB Optional Labs: Chlamydia trachomatis RNA Not Detected (NotDetected) 09/03/22 Neisseria gonorrhoeae RNA Not Detected (NotDetected) 09/03/22 Thyroid Stimulating Hormone (TSH) 1.717 uIu/ml (0.300-4.500) 09/30/22 Labs Reviewed: neg cf/sma last --akh 2 hr gtt 02/13 nl--akh gbs neg--akh Allergies Allergy/AdvReac Type Severity Reaction Status Date / Time Pertussis Vaccines Allergy Severe SEE COMMENT Verified 03/26/23 15:22 erythromycin base Allergy Intermediate HIVES, Verified 03/26/23 15:22 N/V, HALLUCINATION Sulfa (Sulfonamide Allergy Intermediate HIVES, Verified 03/26/23 15:22 Antibiotics) N/V, HALLUCINATIONS sulfamethoxazole Allergy Intermediate hives, Verified 03/26/23 15:22 [From Bactrim] n/v, hallucinations trimethoprim [From Bactrim] Allergy Intermediate hives, Verified 03/26/23 15:22 n/v, hallucinations clindamycin AdvReac Intermediate yeast Verified 03/26/23 15:22 infections doxycycline AdvReac Intermediate YEAST Verified 03/26/23 15:22 INFECTION NSAIDS (Non-Steroidal AdvReac Unknown No NSAID's Verified 03/26/23 15:22 Anti-Inflamma due to hx of gastric bypass surgery Home Medications Medication Instructions Recorded Confirmed Type lansoprazole 30 mg capsule,delayed 30 mg PO QAM 02/14/21 03/26/23 History release albuterol sulfate 2.5 mg/3 mL 2.5 mg (3 mL) inhalation Q4H PRN 05/31/21 03/26/23 Rx (0.083 %) solution for nebulization shortness of breath or wheezing #90 mL ondansetron HCl 4 mg tablet 4 mg PO Q6H PRN nausea and 09/16/22 03/26/23 Rx vomiting #20 tabs safety needles 23 gauge x 1" (BD #50 ea 10/24/22 03/26/23 Rx SafetyGlide Needle) calcium carbonate 500 mg calcium 1,000 mg PO DAILY 01/09/23 03/26/23 History (1,250 mg) chewable tablet (Calcium 500) breast pump #1 ea 02/10/23 03/26/23 Rx valacyclovir 500 mg tablet 500 mg PO BID #60 tabs 02/24/23 03/26/23 Rx (Valtrex) albuterol sulfate 90 mcg/actuation 1 puff inhalation Q4H PRN 03/20/23 03/26/23 History aerosol inhaler (ProAir HFA) Shortness Of Breath cholecalciferol (vitamin D3) 1,250 1,250 mcg PO Q7D 03/20/23 03/26/23 History mcg (50,000 unit) capsule cyanocobalamin (vitamin B-12) 1,000 mcg IM Q14D 03/20/23 03/26/23 History 1,000 mcg/mL injection solution escitalopram oxalate 20 mg tablet 20 mg PO HS 03/20/23 03/26/23 History vitamin K2 1 cap PO DAILY 03/20/23 03/26/23 History vits no.124-ferrous fum tab PO BID 03/21/23 03/26/23 History 27 mg iron-folic acid 800 mcg tablet ( Vitamin) valacyclovir 500 mg tablet 500 mg PO BID 03/21/23 03/26/23 History (Valtrex) Patient History Medical History (Updated 03/21/23 @ 22:56 by Melani Jones MD, FACOG) Anemia Iron deficiency and Vit B12 deficiency 2/2 gastric bypass. follows [facility]. Had IV Iron infusion 03/19/23 and 03/12/23 Anxiety Asthma nebulilzer and inh prn Chronic back pain Degenerative disc disease Depression Family history of allergies pt recently learned that her twin daughters have an allergy to latex-causing redness to the skin with contact (balloons); pt asked to make providers aware as she is concerned for the baby that is about this born possibly having the allergy also. Fibromyalgia GERD (gastroesophageal reflux disease) History of anesthesia reaction difficulty waking History of herpes genitalis History of lymphadenopathy History of nephrolithiasis passed on own History of urinary calculi right Hypertension no recent mention by PCP; no elevated BP readings per OB Insomnia persistent Morbid obesity pt taking ASA 81 mg daily 2/2 AMA and obesity Osteoarthritis Post traumatic stress disorder with 13 completed weeks gestation Sleep apnea mild; does not use CPAP Spinal stenosis Supervision of elderly primigravida pt taking ASA 81 mg daily 2/2 AMA and obesity Tobacco use current every day smoker Varicella vaccination Surgical History (Updated 03/20/23 @ 14:17 by Yamini Shea PA-C) H/O gastric bypass 2019 History of esophagogastroduodenoscopy (EGD) History of lumbar laminectomy History of open reduction and internal fixation (ORIF) procedure right leg fx--hardware removed History of tooth extraction Hx of wisdom tooth extraction S/P section 03/22/22 (twin ): SAB L4-L5 x 1 attempt Family History Grandmother (Maternal) Family history of diabetes mellitus Ovarian cancer Aunt Family history of diabetes mellitus Unknown Diabetes Myocardial infarction Ovarian cancer Mother Fibromyalgia Family/Other Myocardial infarction Father , 68 Myocardial infarction Brother Hypertension Asthma Other No family history of adverse response to anesthesia Denies family history of Prostate cancer Breast cancer Colorectal cancer Social History Smoking Status: Current every day smoker Tobacco Type: Cigarettes Age Started Using Tobacco: 14; packs per day: 1; Cigarettes Per Day: 10; Second Hand Exposure: Yes; Do You Dip or Chew Tobacco: No; Hx Alcohol Use: No Hx Substance Use: No Preferred Language: [place] Communication Ability: Effective Visual Impairment: No Limitations Hearing Ability: Normal Regional Education Manager Required: No Beliefs That Will Affect Care: None marital status: marital status details: Vick Rajeshdarinjavad (42) [phone] Current Living Situation: Spouse, Parent and Family Current Living Situation Comment: lives with spouse, 2 children, 3 cats- spouse to change litter. current occupational status: unemployed and disabled current occupation: homemaker Feels Safe at Home: Yes Childhood Exposure to Second-Hand Smoke: Yes Diet: regular Dental Care, Regularly: No Physical Activity Frequency: 3-4 Times per Week Seatbelt Use: never Sunscreen Use: Yes Assistive Devices: None OB History Past Pregnancies Del. Date GA wks Lbr Lgth wt Sex Type del Anes Place Del Prov ? Comment 10/24/20 10 Aborted-Spontaneous 03/22/22 36 4lb 5oz Spinal [facility] Dr. Zapien Y Baby A 03/22/22 36 5lb 9oz F Spinal [facility] Dr. Zapien Y Baby B Physical Exam Constitutional: WD/WN, vitals as above Gastrointestinal (Abdomen): obese soft, nt, nd, gravid, incision c/d/i Coding Level of Care Code None Diagnoses Morbid obesity E66.01 Elderly multigravida O09.529 Previous delivery affecting , antepartum O34.219
[2023-03-27] MEDS ORDERED: SODIUM CHLORIDE 0.9% 250 ML IV PRN (05:37)
[2023-03-27] MEDS ORDERED: CITRIC ACID/SODIUM CITRATE 15 ML UDC PO STA (05:39)
[2023-03-27] MEDS ORDERED: LACTATED RINGER'S 1,000 ML IV SCH ×2 (05:45→08:45)
[2023-03-27 06:05] LABS: Basophils # (auto) 0.04 K/uL (0.00-0.20); Basophils % (auto) 0.6 %; Eosinophils # (auto) 0.17 K/uL (0.00-0.50); Eosinophils % (auto) 2.4 %; Hematocrit (blood only) 36.1 % (37.0-47.0); Hemoglobin 12.1 g/dl (12.0-16.0); Immature Granulocytes # (auto) 0.07 K/uL (0.01-0.20); Lymphocytes # (auto) 2.06 K/uL (1.20-3.40); Lymphocytes % (auto) 28.8 %; Mean Corpuscular Hemoglobin 30.2 pg (25.0-34.0); Mean Corpuscular Hgb Conc 33.5 g/dL (32.0-36.0); Mean Platelet Volume 10.5 fL (9.4-12.4); Monocytes # (auto) 0.48 K/uL (0.11-0.59); Monocytes % (auto) 6.7 %; Neutrophils # (auto) 4.33 K/uL (1.40-6.50); Neutrophils % (auto) 60.5 %; Platelet Count 169 K/uL (130-400); RDW Coefficient of Variation 13.2 % (11.5-14.5); RDW Standard Deviation 43.8 fL (36.4-46.3); Red Blood Count 4.01 M/uL (4.20-5.40); White Blood Count 7.15 K/ul (4.8-10.8)
[2023-03-27] MEDS ORDERED: MIDAZOLAM HCL 1 MG/ML 2ML VIAL ONE ×2 (06:41)
[2023-03-27] MEDS ORDERED: LIDOCAINE 2% 2 ML VIAL/AMP(20MG/ML) INFIL ONE (06:41)
[2023-03-27] MEDS ORDERED: KETAMINE 50 MG/5 ML SYRINGE ONE (06:41)
[2023-03-27] MEDS ORDERED: fentaNYL citrate PF 100 MCG/2 ML VIAL ONE (06:41)
[2023-03-27] MEDS ORDERED: PROPOFOL IV EMULSION 10 MG/ML 20 ML VIAL IV ONE (06:41)
--- NOTE | 2023-03-27 07:05 | History & Physical Bridge Note ---
Date of Service March 27, 2023 History & Physical Bridge Note I have examined the patient, reviewed the History & Physical and in the interval since the performance of the History & Physical I have noted the following changes of clinical significance: no changes noted
[2023-03-27] MEDS ORDERED: MoRPHine SULFATE PF 1 MG/ML 10 ML AMP/VIAL ONE (07:35)
[2023-03-27] MEDS ORDERED: NALBUPHINE HCL INJ 10 MG/ML AMP IV PRN (07:40)
[2023-03-27] MEDS ORDERED: METOCLOPRAMIDE HCL 10 MG in SODIUM CHLORIDE 0.9% 50 ML IV PRN (07:40)
[2023-03-27] MEDS ORDERED: NALOXONE HCL 0.4 MG/1 ML VIAL/CARP IV PRN (07:40)
[2023-03-27] MEDS ORDERED: MoRPHine SULFATE 2 MG/ML CARP IV PRN (07:40)
[2023-03-27] MEDS ORDERED: NALOXONE HCL 1 MG in SODIUM CHLORIDE 0.9% 1,000 ML IV PRN (07:40)
[2023-03-27] MEDS ORDERED: LACTATED RINGER'S 500 ML IV PRN (07:40)
[2023-03-27] MEDS ORDERED: KETOROLAC 30 MG/ML VIAL IV PRN (07:40)
[2023-03-27] MEDS ORDERED: ePHEDrine sulfate 50 MG/ML AMP IV PRN (07:40)
[2023-03-27] MEDS ORDERED: PROMETHAZINE HCL 12.5 MG in SODIUM CHLORIDE 0.9% 50 ML IV PRN (07:40)
[2023-03-27] MEDS ORDERED: MoRPHine SULFATE PF 1 MG/ML 10 ML AMP/VIAL INT SPINAL ONE (07:40)
[2023-03-27] MEDS ORDERED: diphenhydrAMINE 50 MG/ML VIAL IV PRN (07:40)
[2023-03-27] MEDS ORDERED: NALOXONE HCL 0.08 MG in SYRINGE 1.8 ML IV PRN (07:40)
[2023-03-27] MEDS ORDERED: ONDANSETRON INJ 2 MG/ML 2 ML VIAL IV PRN (07:40)
[2023-03-27] MEDS ORDERED: HYDROmorphone INJ 0.5 MG/0.5 ML SYR IV PRN (07:40)
[2023-03-27] MEDS ORDERED: MEPERIDINE HCL 25 MG/ML CARP/VIAL IV PRN (07:40)
[2023-03-27] MEDS ORDERED: SODIUM CHLORIDE 0.9% 1,000 ML IV SCH (07:45)
[2023-03-27] MEDS ORDERED: DC INTRASPINAL MORPHINE SCH (07:45)
[2023-03-27] MEDS ORDERED: NO NARCOTICS OR SEDATIVES SCH (07:45)
[2023-03-27] MEDS ORDERED: CARBOPROST TROMETHAMINE 250 MCG/ML AMPUL ONE (08:17)
[2023-03-27] MEDS ORDERED: ePHEDrine sulfate 50 MG/5 ML SYR ONE (08:17)
[2023-03-27] MEDS ORDERED: SENNA 8.6 MG TAB PO PRN (08:34)
[2023-03-27] MEDS ORDERED: HYDROCORTISONE ACETATE 25 MG SUPP PR PRN (08:34)
[2023-03-27] MEDS ORDERED: BENZOCAINE 20% SPRY 85 APPLN/85 GM CAN EXT PRN (08:34)
[2023-03-27] MEDS ORDERED: MAGNESIUM HYDROXIDE SUSP 30 ML UDC PO PRN (08:34)
[2023-03-27] MEDS ORDERED: OXYTOCIN 10 UNITS/ML VIAL ONE (08:49)
[2023-03-27 09:02] LABS: Base Excess Cord Arterial Bld -1.8 mEq/L (-9-1.8); CO2 Cord Arterial Blood 55 mmHg (39.1-73.5); Cord Venous Blood HCO3 28 mmol/L (18.4-26.8); Cord Venous Blood PCO2 47 mmHg (30.4-57.2); Cord Venous Blood PO2 31 mmHg (14.1-43.3); Cord Venous Blood pH 7.38 (7.20-7.44); HCO3 Cord Arterial Blood 26 mmol/L (19.7-28.5); O2 Saturation Cord Venous Bld < 60.0 % (<68); Oxygen Sat Cord Arterial Blood < 60.0 % (<60); PO2 Cord Arterial Blood 13 mmHg (4.1-31.7); pH Cord Arterial Blood 7.28 (7.1-7.38)
--- NOTE | 2023-03-27 09:03 | Operative Report ---
PG Post Operative Report Pre & Post Diagnosis Operation Date: 03/27/23 07:30 Pre-Op Diagnosis: IUP at 39 weeks gestation Hx previous section Desires repeat section Desires sterilization Post-Op Diagnosis: same I identified the patient and participated in the time-out.: Yes Procedure Operation Date: 03/27/23 07:30 Actual Procedures p repeat lower transverse Section in for live femal - Ladan Elizabeth MD, FACOG Surgeon Ladan Elizabeth MD, FACOG Buhr Dresser Dr. Terrell Jones, Dr. Gimenez Estimated Blood Loss 600 Findings Consistent with Post-Op Diagnosis viable female infant, nl uterus, tubes and ovaries. The uterus was rotated to the maternal left insitu. Fluids 800cc ivf 100cc clear yellow urine in maciel Specimens tubes Drains maciel Anesthesia Type Spinal Complications none Disposition Accompanied Patient To Recovery: Yes Disposition: L&D Indications Patient is a 38yowf with iup at 39 2/7 weeks who presents for elective repeat c/s and bilateral salpingectomy Description of Procedure The patient was taken to the operating room where she was identified verbally and by bracelet. She was seated on the operating table where a spinal anesthetic was placed by anesthesia. She was then placed in the supine position with a leftward tilt. A Maciel catheter was placed sterilely. the patient was prepped and draped in a normal standard fashion. the anesthetic was tested and found to be adequate. A time-out was held, identifying correct patient, procedure, positioning and preoperative antibiotics. There were no concerns. A Pfannenstiel skin incision was made with a knife and taken down to the underlying layer of fascia with the knife and Bovie electrocautery. Bleeding was attended to with the Bovie. The fascia was incised in the midline with the knife and taken out laterally with scissors. The superior edge of the fascial incision was grasped, elevated and the underlying layer of rectus muscle was taken off bluntly and with scissors. In a similar fashion, the inferior edge of the fascial incision was grasped, elevated and the underlying layer of rectus muscle was taken off bluntly and with scissors. The muscles were bluntly in the midline. The peritoneum was entered bluntly. The incision was then stretched. The bladder blade was placed. The uterus was rotated to the maternal left and the right adnexa were presenting. The uterus was manually rotated to the right. The vesicouterine peritoneum was identified, entered with scissors and taken out laterally with scissors. The bladder flap was created digitally A hysterotomy incision was scored with a knife and the incision was stretched superiorly and inferiorly with the disc ruler operator's fingers. The operators hand was placed into the incision and the head was delivered atraumatically. Nuchal cord x 2 reduced. The nose and mouth were bulb suctioned. the rest of the was then delivered without difficulty. The nose and mouth were again bulb suctioned. The cord was clamped and cut and the infant was then handed off to the awaiting opener tender for drying and attention. Cord blood and segment were obtained. The placenta was Manually extracted. The uterus was exteriorized and cleared of all clot and debris with moistened laparotomy sponges. The hysterotomy incision was repaired in one layer, running locked layer. A figure of eight suture was needed in the midline for menostasis. Hemostasis was noted to be good. Intrauteine muscular hemobate was used to help with atony. Posterior cul-de-sac was irrigated and cleared of all clot and debris. The hysterotomy incision was again inspected and found to be hemostatic. the uterus was reinteriorized. Hysterotomy incision was again inspected and found to be hemostatic. Rectus muscles were reapproximated with several interrupted stitches of 0 Vicryl. The fascia was then reapproximated with 0 Vicryl starting at the edges and meeting in the midline. The subcuticular tissues were copiously irrigated and bleeding was attended to with cautery. The subcuticular tissues were closed with horizontal mattress sutures of 2-0 plain gut suture. The skin was then closed with 4-0 Vicryl in a subcuticular fashion. All sponge, lap and needle counts were correct x 2. The patient tolerated the procedure well and was taken to the recovery room in stable condition. I attest to the content of the Intraoperative Record and any orders documented therein. Any exceptions are noted below. OB Procedure Charges [id number] [id number] Add on Tubal for C/S
[2023-03-27] MEDS ORDERED: KETOROLAC TROMETHAMINE 15 MG/ML VIAL IV PRN (09:08)
[2023-03-27] MEDS: OXYTOCIN 20 UNITS in LACTATED RINGER'S 1,000 ML IV SCH ×2 (09:38→18:02)
[2023-03-27] MEDS ORDERED: CARBOPROST TROMETHAMINE 250 MCG/ML AMPUL IM ONE (12:35)
[2023-03-27] MEDS: SIMETHICONE 80 MG CHEW PO SCH ×3 (12:50→21:35)
--- NOTE | 2023-03-27 14:10 | Anesthesiology Progress Note ---
Date of Service March 27, 2023 Anesthesia Post Procedure Vital Signs Vital Signs: Temp Pulse Resp BP Pulse Ox 03/27/23 10:50 36.4 C L 16 03/27/23 10:20 16 03/27/23 09:50 16 03/27/23 09:40 16 03/27/23 09:30 16 03/27/23 09:20 16 03/27/23 09:10 16 03/27/23 09:00 16 03/27/23 08:50 36.4 C L 16 03/27/23 05:42 36.7 C 64 16 100/58 L 03/27/23 11:27 98 03/27/23 11:27 68 03/27/23 11:22 99 03/27/23 11:22 62 03/27/23 11:17 99 03/27/23 11:17 59 L 03/27/23 11:12 100 03/27/23 11:12 59 L 03/27/23 11:07 100 03/27/23 11:07 62 03/27/23 11:02 60 98 03/27/23 10:57 61 98 03/27/23 10:52 65 98 03/27/23 10:53 61 106/60 03/27/23 10:47 59 L 97 03/27/23 10:42 69 98 03/27/23 10:43 71 103/58 L 03/27/23 10:37 61 98 03/27/23 10:33 67 109/61 03/27/23 10:32 67 97 03/27/23 10:27 63 98 03/27/23 10:22 63 100 03/27/23 10:23 61 106/61 03/27/23 10:17 63 97 03/27/23 10:12 59 L 98 03/27/23 10:13 60 104/57 L 03/27/23 10:07 61 97 03/27/23 10:03 67 115/61 03/27/23 10:02 62 99 03/27/23 09:57 63 99 03/27/23 09:52 66 98 03/27/23 09:53 67 103/58 L 03/27/23 09:47 68 97 03/27/23 09:42 64 99 03/27/23 09:43 73 103/58 L 03/27/23 09:37 72 97 03/27/23 09:33 71 116/62 03/27/23 09:32 74 98 03/27/23 09:27 64 97 03/27/23 09:22 65 96 03/27/23 09:23 65 103/59 L 03/27/23 09:17 66 95 03/27/23 09:12 72 95 03/27/23 09:13 69 101/57 L 03/27/23 09:07 74 97 03/27/23 09:04 70 115/55 L 03/27/23 09:02 68 97 03/27/23 09:01 75 91 03/27/23 08:57 74 99 03/27/23 08:52 73 96 03/27/23 08:53 72 107/59 L 03/27/23 07:36 69 100 03/27/23 07:31 65 100 03/27/23 07:26 62 100 03/27/23 07:21 63 99 03/27/23 07:16 64 100 03/27/23 07:11 67 100 03/27/23 07:06 65 100 03/27/23 07:01 69 97 03/27/23 06:56 63 96 03/27/23 06:51 65 97 03/27/23 06:46 66 100 03/27/23 06:41 63 100 03/27/23 06:36 68 100 03/27/23 06:31 65 100 03/27/23 06:26 63 100 03/27/23 06:21 63 100 03/27/23 06:16 62 100 03/27/23 06:11 61 100 03/27/23 06:06 65 100 03/27/23 06:01 66 100 03/27/23 05:56 67 100 03/27/23 05:44 64 100/58 L Transfer of Care Handoff Completed per policy Notes Mental Status: alert / awake / arousable and participated in evaluation Nausea / Vomiting: adequately controlled Pain: adequately controlled Airway Patency, RR, SpO2: stable & adequate BP & HR: stable & adequate Hydration State: stable & adequate Neuraxial Anesthesia: was administered and sensory block is resolving Anesthetic Complications: no major complications apparent and Pt Satisfied with anesthetic care
[2023-03-27] MEDS: DOCUSATE SODIUM 100 MG CAP PO SCH (21:35)
[2023-03-28 01:24] LABS: Hematocrit (blood only) 31.4 % (37.0-47.0); Hemoglobin 10.6 g/dl (12.0-16.0); Mean Corpuscular Hemoglobin 30.1 pg (25.0-34.0); Mean Corpuscular Hgb Conc 33.8 g/dL (32.0-36.0); Mean Corpuscular Volume 89.2 fL (80.0-100.0); Mean Platelet Volume 11.1 fL (9.4-12.4); Platelet Count 145 K/uL (130-400); RDW Coefficient of Variation 13.2 % (11.5-14.5); RDW Standard Deviation 43.5 fL (36.4-46.3); Red Blood Count 3.52 M/uL (4.20-5.40); White Blood Count 9.21 K/ul (4.8-10.8)
[2023-03-28] MEDS: KETOROLAC 30 MG/ML VIAL IV PRN ×2 (01:40→15:42)
[2023-03-28] MEDS ORDERED: diphenhydrAMINE Capsule 25 MG CAP PO PRN (01:41)
[2023-03-28] MEDS ORDERED: ONDANSETRON INJ 2 MG/ML 2 ML VIAL IV PRN (01:41)
[2023-03-28] MEDS ORDERED: oxyCODONE/ACETAMINOPHEN 5mg/325mg TAB PO PRN (01:41)
[2023-03-28] MEDS ORDERED: MEPERIDINE HCL 50 MG/ML CARP IV PRN (01:41)
[2023-03-28] MEDS ORDERED: diphenhydrAMINE 50 MG/ML VIAL IV PRN (01:41)
[2023-03-28] MEDS ORDERED: PROMETHAZINE HCL 25 MG in SODIUM CHLORIDE 0.9% 50 ML IV PRN (01:41)
--- NOTE | 2023-03-28 06:59 | Obstetrical Progress Note ---
Date of Service March 28, 2023 Assessment & Plan (1) S/P section: Plan: encourage ambulation pain control possible dc tomorrow Admission and Anticipated Discharge Date Admission Date: March 27, 2023 Supervising Physician Co-Signing Physician Notes Resident Physician Supervision Note: I interviewed and examined the patient. Discussed with Dr. Gimenez and agree with findings and plan as documented in the note. Any exceptions or clarifications are listed here: Doing well. Did not sleep well and very tired. Has some low blood pressures, but ran low prior to her surgery. Normal pulse. h/h reasonable for postop. Plan routine pp care. Documented By: Ladan Elizabeth MD, FACOG Subjective 38 yo post day 1 s/p Ambulation: not ambulating yet Voiding: no voiding problems Passing Gas:: Yes Diet Tolerance:: regular diet Lochia:: Small Feeding Type:: bottle feeding Current Pain Level: moderate, controlled Resting comfortably this AM in NAD. Very tired, Denies STRONG, CP, SOB, N/V/D, LE pain/swelling. Review of Systems Review of Systems: reviewed, per HPI Physical Exam Physical Exam: General: patient resting comfortably, NAD, non-toxic in appearance, AA&O x 4, answers questions appropriately. Skin: warm, dry, intact HEENT: NC/AT, anicteric sclera, conjunctiva without injection, moist mucus membranes. Heart: +S1/S2, regular, no m/r/g Lungs: equal air entry bilaterally, no rales/rhonchi/wheezes Abd: +BS, soft, NT/ND, uterine fundus firm at umbilicus, caesarean incision dressing C/D/I. Ext: warm, no clubbing/cyanosis or edema, Carmen's neg. Neuro: nonfocal, patient AA&O x 4, speech intact, no facial droop, moving all extremities on command. Results & Data Vital Signs (Past 12 Hours) Vital Signs Temp Pulse Resp BP Pulse Ox O2 Del Method 03/28/23 03:05 36.7 C 67 18 82/51 L 95 Room Air 03/28/23 01:00 18 96 03/28/23 00:20 18 96 03/27/23 23:10 18 96 03/27/23 23:10 36.7 C 72 18 88/53 L 96 Room Air 03/27/23 21:50 20 95 03/27/23 20:50 20 95 03/27/23 20:50 36.5 C 64 20 79/50 L 95 Room Air 03/27/23 19:50 20 95 03/27/23 19:00 16 95 Laboratory Results 03/28/23 03/27/23 03/27/23 Range/Units 00:30 Unknown Unknown WBC 9.21 (4.8-10.8) K/ul RBC 3.52 L (4.20-5.40) M/uL Hgb 10.6 L (12.0-16.0) g/dl Hct 31.4 L (37.0-47.0) % MCV 89.2 (80.0-100.0) fL MCH 30.1 (25.0-34.0) pg MCHC 33.8 (32.0-36.0) g/dL RDW Std Deviation 43.5 (36.4-46.3) fL RDW Coeff of Adri 13.2 (11.5-14.5) % Plt Count 145 (130-400) K/uL MPV 11.1 (9.4-12.4) fL Cord ABG pH 7.28 (7.1-7.38) Cord ABG pCO2 55 (39.1-73.5) mmHg Cord ABG pO2 13 (4.1-31.7) mmHg Cord ABG HCO3 26 (19.7-28.5) mmol/L Cord ABG Base Excess -1.8 (-9-1.8) mEq/L Cord ABG O2 Sat < 60.0 (<60) % Cord VBG pH 7.38 (7.20-7.44) Cord VBG pCO2 47 (30.4-57.2) mmHg Cord VBG pO2 31 (14.1-43.3) mmHg Cord VBG HCO3 28 H (18.4-26.8) mmol/L Cord VBG Base Excess 2.0 H (-7.7-1.9) mEq/L Cord VBG O2 Sat < 60.0 (<68) % Blood Gas Comments INFANT A INFANT A Blood Type Antibody Screen 03/27/23 Range/Units 05:50 WBC (4.8-10.8) K/ul RBC (4.20-5.40) M/uL Hgb (12.0-16.0) g/dl Hct (37.0-47.0) % MCV (80.0-100.0) fL MCH (25.0-34.0) pg MCHC (32.0-36.0) g/dL RDW Std Deviation (36.4-46.3) fL RDW Coeff of Adri (11.5-14.5) % Plt Count (130-400) K/uL MPV (9.4-12.4) fL Cord ABG pH (7.1-7.38) Cord ABG pCO2 (39.1-73.5) mmHg Cord ABG pO2 (4.1-31.7) mmHg Cord ABG HCO3 (19.7-28.5) mmol/L Cord ABG Base Excess (-9-1.8) mEq/L Cord ABG O2 Sat (<60) % Cord VBG pH (7.20-7.44) Cord VBG pCO2 (30.4-57.2) mmHg Cord VBG pO2 (14.1-43.3) mmHg Cord VBG HCO3 (18.4-26.8) mmol/L Cord VBG Base Excess (-7.7-1.9) mEq/L Cord VBG O2 Sat (<68) % Blood Gas Comments Blood Type O Positive Antibody Screen NEGATIVE Resident Activity Tracking Resident Involvement: Resident Care Provided Care Provided: Adult Hospital Medicine
[2023-03-28] MEDS: PRENATAL VITAMIN 1 TAB PO SCH (08:37)
[2023-03-28] MEDS: SIMETHICONE 80 MG CHEW PO SCH ×4 (08:37→19:56)
[2023-03-28] MEDS: DOCUSATE SODIUM 100 MG CAP PO SCH ×2 (08:37→19:56)
[2023-03-28] MEDS: FERROUS SULFATE 325 MG TAB PO SCH (08:37)
[2023-03-28] MEDS: ACETAMINOPHEN 325 MG TAB PO PRN ×3 (08:38→19:57)
[2023-03-28 08:45] LABS: Basophils # (auto) 0.03 K/uL (0.00-0.20); Basophils % (auto) 0.4 %; Eosinophils # (auto) 0.19 K/uL (0.00-0.50); Eosinophils % (auto) 2.5 %; Hematocrit (blood only) 34.2 % (37.0-47.0); Hemoglobin 11.1 g/dl (12.0-16.0); Immature Granulocytes # (auto) 0.07 K/uL (0.01-0.20); Immature Granulocytes % (auto) 0.9 %; Lymphocytes % (auto) 13.2 %; Mean Corpuscular Hemoglobin 29.9 pg (25.0-34.0); Mean Corpuscular Hgb Conc 32.5 g/dL (32.0-36.0); Mean Corpuscular Volume 92.2 fL (80.0-100.0); Mean Platelet Volume 10.7 fL (9.4-12.4); Monocytes # (auto) 0.42 K/uL (0.11-0.59); Monocytes % (auto) 5.5 %; Neutrophils # (auto) 5.88 K/uL (1.40-6.50); Neutrophils % (auto) 77.5 %; Platelet Count 159 K/uL (130-400); RDW Coefficient of Variation 13.2 % (11.5-14.5); RDW Standard Deviation 44.4 fL (36.4-46.3); Red Blood Count 3.71 M/uL (4.20-5.40); White Blood Count 7.59 K/ul (4.8-10.8)
[2023-03-28] MEDS ORDERED: bisacodyL 5 MG TABEC PO SCH (20:00)
[2023-03-28] MEDS: ESCITALOPRAM OXALATE 20 MG TAB PO SCH (21:08)
[2023-03-29 08:00] LABS: Hematocrit (blood only) 33.3 % (37.0-47.0)
[2023-03-29] MEDS: FERROUS SULFATE 325 MG TAB PO SCH ×2 (08:30→08:32)
[2023-03-29] MEDS: SIMETHICONE 80 MG CHEW PO SCH ×4 (08:30→20:17)
[2023-03-29] MEDS: PRENATAL VITAMIN 1 TAB PO SCH (08:30)
[2023-03-29] MEDS: ACETAMINOPHEN 325 MG TAB PO PRN ×2 (08:31→15:13)
[2023-03-29] MEDS: DOCUSATE SODIUM 100 MG CAP PO SCH ×2 (08:31→20:17)
[2023-03-29] MEDS ORDERED: bisacodyL 10 MG SUPP PR PRN (08:34)
--- NOTE | 2023-03-29 10:23 | Obstetrical Progress Note ---
Date of Service March 29, 2023 Assessment & Plan (1) Encounter for care and examination after delivery: Day 2 status post repeat . Patient doing well. Incision with serosanguineous discharge and ABD applied. Recommended changing ABD pad 3-[address] order for antifungal powder. Routine care Subjective Ambulation: ambulating normally Voiding: no voiding problems Passing Gas:: Yes Diet Tolerance:: regular diet Lochia:: Moderate Feeding Type:: breast feeding Physical Exam Constitutional WD/WN, vitals as above Respiratory normal respiratory effort; no respiratory distress and no labored breathing Gastrointestinal (Abdomen) Inspection/Auscultation: abdomen normal to inspection; abdomen not distended Percussion/Palpation: abdomen soft; abdomen nontender, no guarding and abdomen not rigid Incision with serosanguineous discharge. ABD pad applied. Incision otherwise intact. Genitourinary OB Exam Abdomen: + fundal height Fundus: + firm and + relation to umbilicus (Below); not tender or not boggy Results & Data Vital Signs (Past 12 Hours) Vital Signs Temp Pulse Resp BP O2 Del Method 03/28/23 23:45 36.7 C 71 18 97/63 L Room Air
[2023-03-29] MEDS: MICONAZOLE NITRATE POWDER 85 GM EXT SCH ×2 (12:25→20:29)
[2023-03-29] MEDS: ESCITALOPRAM OXALATE 20 MG TAB PO SCH (20:17)
--- NOTE | 2023-03-30 06:12 | Obstetrical Progress Note ---
Date of Service <Arcenio Mccann DO - Last Filed: 03/30/23 07:41> March 30, 2023 Assessment & Plan <Arcenio Mccann DO - Last Filed: 03/30/23 07:41> (1) S/P section: Plan S/p repeat , POD 3, patient doing well. Incision site with serosanguineous discharge, continue dressing changes as needed. Routine post- care. Likely discharge today, pending evaluation by pediatrics Plan for follow up 6 weeks after discharge. <Sameer Daniels MD - Last Filed: 03/30/23 07:58> (1) S/P section: Subjective <Arcenio Mccann DO - Last Filed: 03/30/23 07:41> Ambulation: ambulating normally Voiding: no voiding problems Passing Gas:: Yes Diet Tolerance:: regular diet Lochia:: Small Feeding type: breast and formula feeding Pain well controlled with Tylenol Review of Systems -Denies fever or chills -Denies dyspnea, chest pain, or palpitations -Denies breast pain -Denies dysuria -Denies headache or changes in vision Physical Exam <Arcenio Mccann DO - Last Filed: 03/30/23 07:41> General: Alert and oriented. No acute distress Cardiac: Regular rate and rhythm, no murmurs appreciated Respiratory: Lungs clear to auscultation bilaterally, No increased work of breathing Abdominal: Soft, non-tender, non-distended. Bowel sounds present. Uterus: Uterine fundus firm, palpable below umbilicus Integumentary: incision site with clean dressing, moderate serosanguineous discharge Extremities: No lower extremity edema, calves non-tender bilaterally Results & Data <Arcenio Mccann DO - Last Filed: 03/30/23 07:41> Vital Signs (Past 12 Hours) Vital Signs Temp Pulse Resp BP 03/29/23 23:32 36.6 C 73 18 110/71 03/29/23 20:00 36.6 C 66 18 103/67 <Sameer Daniels MD - Last Filed: 03/30/23 07:58> Co-Signing Physician Notes Patient seen with resident and agree with the above findings and plan. Stable for discharge. Resident Activity Tracking <Arcenio Mccann DO - Last Filed: 03/30/23 07:41> Resident Involvement: Resident Care Provided Care Provided: OB Delivery
[2023-03-30] MEDS: ACETAMINOPHEN 325 MG TAB PO PRN (07:04)
[2023-03-30] MEDS: MICONAZOLE NITRATE POWDER 85 GM EXT SCH (08:06)
[2023-03-30] MEDS: PRENATAL VITAMIN 1 TAB PO SCH (08:26)
[2023-03-30] MEDS: SIMETHICONE 80 MG CHEW PO SCH (08:26)
[2023-03-30] MEDS: DOCUSATE SODIUM 100 MG CAP PO SCH (08:26)
[2023-03-30] MEDS: FERROUS SULFATE 325 MG TAB PO SCH ×2 (08:26→08:28)
--- NOTE | 2023-03-31 13:01 | Discharge Summary ---
Date of Service March 31, 2023 Admission HPI Per Admitting Provider Patient is a 38yowf GP who presents for repeat c/s and tubal. Last was a c/s for twins at 36 weeks. Short interval. Delivered 03/22/22. has essentially been uncomplicated. Desires sterilization. Declines other options, including larc. and Delivery Plans AMA Weekly NST's @ 36 weeks Obesity (BMI between 35-39 @ beginning of ) *Growth US @ 32 wks--AC 46%, efw 34% *Weekly NSTs @ 36wks Baby asa (obesity, ama) Previous --03/22/22 for twins short interval recommend repeat c/s. Desires BTL C/S WITH TUBAL SCHEDULED FOR 03/27/[address] ZAPIEN AND DR. JOYA ASSIST declines narcotics and cannot take nsaids per surgeon. 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 NON-REACTIVE (NON-REACTIVE) 09/03/22 Hepatitis C Antibody Neg (Neg) 08/30/21 Hepatitis C Antibody (EIA) NON-REACTIVE (NON-REACTIVE) 09/03/22 HIV (1&2) Ab and P24 Ag, 4th Gener Neg (Neg) 08/30/21 HIV (1&2) Ag and Ab Confirmation NON-REACTIVE (NON-REACTIVE) 09/03/22 OB Optional Labs: Chlamydia trachomatis RNA Not Detected (NotDetected) 09/03/22 Neisseria gonorrhoeae RNA Not Detected (NotDetected) 09/03/22 Thyroid Stimulating Hormone (TSH) 1.717 uIu/ml (0.300-4.500) 09/30/22 Labs Reviewed: neg cf/sma last --[facility] 2 hr gtt 02/13 nl--[facility] gbs neg--[facility] Discharge Data Consultations 03/27/23 05:34 Consult Anesthesiology Stat Procedures Performed Operation Date: 03/27/23 07:30 Actual Procedures p Section in LD for live female infant at 0813 - Ladan Zapien MD, [facility] [place] Hospital Course (1) S/P section: (2) Elderly multigravida: (3) Previous delivery affecting , antepartum: Plan The patient was admitted on 03/27/2023 and had a repeat lower transverse c/s and bilateral salpingectomy without complications. EBL--600cc. Her course was uncomplicated. Tolerated a regular diet, ambulated without difficulty, tolerated oral pain meds, voided after removal of her Armstrong. She was d/c on 03/30/2023. d/c h/h 11.0/33.3 Coding Level of Care Code None Diagnoses S/P section Z98.891 Elderly multigravida O09.529 Previous delivery affecting , antepartum O34.219
== END 2023-03-30 11:05 | disposition home or self-care (01) | DRG 785 ==
LOC: 4S1 05:32 → EDSTATUS 07:30 → 4E2 11:57